=== PATIENT | female | born 1965 | race Caucasian/White ===

== ENCOUNTER 2022-01-09 09:06 | Emergency (ER) | payer BC ==
--- OUTSIDE RECORDS SUMMARY | 2022-01-09 09:08 | XMS REPORT | Continuity of Care Document ---
:1965 Author Organization [facility] t Address [address] [place] [address] Care Team Providers Name Role Phone Russell Attending Clinician Unavailable Problems This patient has no known problems. Allergies, Adverse Reactions, Alerts Allergy Allergy Status Severity Reaction(s) Onset Inactive Treating Comm ents Source Name Type Date Date Clinician NSAIDS Adverse Active throat[facility]facia [facility] Aspirin Adverse Active [facility] Medications Ordered Filled Start Stop Current Ordering Indication Dosage Frequency Signature Comments Components Source Medication Medication Date Date Medication? Clinician (SIG) Name Name Acyclovir Acyclovir Yes Polly [address] [facility] Pravastatin Pravastatin 0 Yes Polly [address] [facility] Sodium Sodium 8-06 [facility] Farxiga Farxiga 2019-0 2020- No [facility] Acyclovir Acyclovir Yes Polly [address] [facility] [address] [facility] Russell [facility]atio [facility] Mometasone Mometasone Yes Polly [address] [facility] [address] [facility] Furoate Furoate Russell applicatio Farheen kes [facility] Immunizations Ordered Filled Immunization Date Status Comments [facility] e Immunization Name Name Flucelvax - single Flucelvax - single 2020-05-[address] [facility] - dose syringe dose syringe 00:00:00 [facility] Flucelvax - single Flucelvax - single 2019-07-[address] [facility] - dose syringe dose syringe 00:00:00 [facility] Procedures This patient has no known procedures. Encounters Start End Encounter Admission Attending Care Care Encounter Source Date/Time Date/Time Type Type Clinicians Facility Department ID 2021-10-20 Outpatient [place] [facility] [id number] [facility] 15[facility]00 [facility] 2021-10-12 Outpatient [place] [facility] [id number] [facility] 08:38:01 [facility] 2021-10-04 Outpatient [place] [facility] [id number] [facility] 14:00:37 [facility] [id number] [facility] 2021-10-04 Outpatient [place] [facility] [id number] [facility] 12:45:46 [facility] [id number] [facility] 2021[facility]10-04 Outpatient [place] [facility] [id number] [facility] 12:14:09 [facility] [id number] [facility] 2021-10-04 Outpatient [place] [facility] [id number] [facility] 11:56:05 [facility] [id number] [facility] 2021-10-04 Outpatient [place] [facility] [id number] [facility] 11:24:32 [facility] [id number] [facility] 2021-10-04 Outpatient [place] [facility] [id number] [facility] 10:59:22 [facility] [id number] [facility] 2021-06-26 2021-06-26 Out[facility] [id number] [facility] 2021-04-18 2021-04-18 Out[facility] [id number] [facility] 2021-03-22 2021-03-22 Out[facility] [id number] [facility] 2021-03-20 2021-03-20 [facility] [id number] [facility] 2021-03-15 2021-03-15 Out[facility] [id number] [facility] 2020-12-05 2020-12-05 Out[facility] [id number] [facility] 2020-08-26 2020-08-26 Outpatient [facility] [id number] [facility] 2020-05-20 2020-05-20 [facility] [id number] [facility] 08:40:00 08:40:00 [facility] 2020-04-14 2020-04-14 [facility] [id number] [facility] 18[facility]28:00 18:28:00 [facility] 2020-02-22 2020-02-22 [facility] [id number] [facility] 11:00:00 11:00:00 [facility] Medicine [facility] Clin[facility] 2020-02-12 2020-02-12 [facility] [id number] [facility] 08:00:00 08:00:00 [facility] Medicine Out[facility] Clin[facility] 2019-11-18 2019-11-18 [facility] [id number] [facility] 17:40:00 17:40:00 [facility] Outpat[facility] Clinics 2019-11-13 2019-11-13 [facility] [id number] [facility] 09:20:00 09:20:00 [facility] Medicine Outpati [facility] Clinics 2019-09-18 2019-09-18 [facility] [id number] 09:00:00 09:00:00 [facility] Medicine Outpati ent Clinics 2019-07-10 2019-07-10 [facility] [id number] [facility] 08:40:00 08:40:00 [facility] Medicine Outpati ent Clinics 2019-03-27 2019-03-27 [facility] [id number] 08:40:00 08:40:00 [facility] Medicine Outpat[facility] Clinics 2018-11-13 2018-11-13 [facility] [id number] 14:30:00 14:30:00 [facility] Results This patient has no known results.
[2022-01-09] MEDS ORDERED: TETANUS & DIPHTHERIA TOX,ADULT 0.5 ML VIAL ONE (10:12)
[2022-01-09] MEDS ORDERED: LIDOCAINE 1% MPF 30 ML VIAL ONE (10:12)
--- NOTE | 2022-01-09 11:02 | ER ---
Nurse's Notes [facility] Name: Piedad Mello Age: 56 yrs Sex: Female : 1965 Arrival Date: 01/09/2022 Time: 09:08 Bed 10 Private MD: Diagnosis: Laceration without foreign body, right lower leg Presentation: 01/09 09:43 Chief complaint: Patient states: Metal edge of air filter cover fell and cut R leg just ll1 20 min ASW/ASUW [employer]ICAL [employer]ER. <5 cm laceration, bleeding has stopped . Coronavirus screen: Vaccine status: Patient reports receiving the 2nd dose of the covid vaccine. Client denies travel out of the [place] in the last 14 days. At this time, the client does not indicate any symptoms associated with coronavirus-19. Ebola Screen: Patient denies travel to an Ebola-affected area in the 21 days before illness onset. Complicating Factors: There are no complicating factors for this patient. Initial Sepsis Screen: Does the patient meet any 2 criteria? No. Patient's initial sepsis screen is negative. Does the patient have a suspected source of infection? Yes: Skin breakdown/wound. Risk Assessment: Do you want to hurt yourself or someone else? Patient reports no desire to harm self or others. Onset of symptoms was January 09, 2022. 09:43 Method Of Arrival: Ambulatory ll1 09:43 Acuity: MYRA 4 ll1 Triage Assessment: 09:46 General: Appears uncomfortable, Behavior is cooperative, appropriate for age. Pain: ll1 Complains of pain in right leg Quality of pain is described as aching. Derm: Reports <5 cm laceration RLE. Musculoskeletal: Circulation, motion, and sensation intact. Capillary refill < 3 seconds. Injury Description: Laceration. Historical: - Allergies: 09:45 Aspirin; ll1 09:45 NSAIDS; ll1 - PMHx: 09:45 Diabetes mellitus; ll1 - PSHx: 09:45 spine SX neck area.; ll1 - Immunization history:: Client reports receiving the 2nd dose of the Covid vaccine. - Social history:: Smoking status: Patient denies any tobacco usage or history of. Screenin:46 Abuse screen: Denies threats or abuse. Nutritional screening: No deficits noted. ll1 Tuberculosis screening: No symptoms or risk factors identified. Fall Risk Total Mena Fall Scale indicates No Risk (0-24 pts). Assessment: 10:10 Reassessment: No changes from previously documented assessment. Patient and/or family ll1 updated on plan of care and expected duration. Pain level reassessed. Patient is alert, oriented x 3, equal unlabored respirations, skin warm/dry/pink. 12:04 Injury Description: Laceration is clean. ll1 12:04 Musculoskeletal: Circulation, motion, and sensation intact. Capillary refill < 3 ll1 seconds. Vital Signs: 09:43 BP 157 / 86; Pulse 72; Resp 16; Temp 97.9; Pulse Ox 99% on R/A; Weight 53.07 kg; Height ll1 5 ft. 0 in. (152.40 cm); Pain 410; 09:43 Body Mass Index 22.85 (53.07 kg, 152.40 cm) ll1 ED Course: 09:08 Patient arrived in ED. ds1 09:45 Triage completed. ll1 09:48 Ramy Robledo NP is PHCP. pm1 09:48 Lam Stanford MD is Attending Physician. pm1 10:34 Layla Adams, LEANNE is Primary Nurse. ll1 11:17 Patient has correct armband on for positive identification. Bed in low position. Call ll1 light in reach. Cardiac monitoring not applicable on this patient. 11:17 No provider procedures requiring assistance completed. Patient did not have IV access ll1 during this emergency room visit. 12:03 Arm band placed on. ll1 Administered Medications: 10:10 Drug: Tetanus-Diphtheria Toxoid Adult 0.5 ml {Carrier Operator: [employer]. Exp: ll1 11/18/2023. Lot #: [id number]. } Route: IM; Site: right deltoid; 12:04 Follow up: Response: No adverse reaction ll1 10:36 Drug: Lidocaine (1 %) 5 ml {Note: Administered by YOMI Mccann.} Volume: 5 ml; Route: ss Infiltration; Outcome: 11:02 Discharge ordered by . pm1 11:17 Patient left the ED. 5 11:17 Discharged to home ambulatory. ll1 11:17 Condition: stable 11:17 Discharge instructions given to patient, Instructed on discharge instructions, follow up and referral plans. no driving heavy equipment, medication usage, Demonstrated understanding of instructions, follow-up care, medications, Prescriptions given X 2. Signatures: Krysta Pablo ds1 Veena Shea, LEANNE RN ss Ramy Robledo, DAIRY CONSULTANT DAIRY CONSULTANT pm1 Oksana Crane 5 Layla Adams RN RN ll1
--- NOTE | 2022-01-09 11:02 | EDPHYS ---
Physician Documentation [facility] Name: Piedad Mello Age: 56 yrs Sex: Female : 1965 Arrival Date: 01/09/2022 Time: 09:08 Bed 10 Private MD: ED Physician Lam Stanford HPI: 01/09 10:00 This 56 yrs old Female presents to ER via Ambulatory with complaints of Laceration To pm1 Leg. 10:00 The patient has a laceration occurred at home, and there are no complicating factors. pm1 The laceration(s) is(are) located on the right leg. Onset: The symptoms/episode began/occurred just prior to arrival. Associated signs and symptoms: The patient has no apparent associated signs or symptoms, Pertinent negatives: heavy bleeding, numbness distal to injury, suspected foreign body. The patient has not experienced similar symptoms in the past. The patient has not recently seen a physician. Patient was changing the air filter and the covering grate fell down and cut the patient's right leg. Historical: - Allergies: 09:45 Aspirin; ll1 09:45 NSAIDS; ll1 - PMHx: 09:45 Diabetes mellitus; ll1 - PSHx: 09:45 spine SX neck area.; ll1 - Immunization history:: Client reports receiving the 2nd dose of the Covid vaccine. - Social history:: Smoking status: Patient denies any tobacco usage or history of. ROS: 10:00 Constitutional: Negative for fever, chills, and weight loss, Cardiovascular: Negative pm1 for chest pain, palpitations, and edema, Respiratory: Negative for shortness of breath, cough, wheezing, and pleuritic chest pain, Abdomen/GI: Negative for abdominal pain, nausea, vomiting, diarrhea, and constipation. 10:00 MS/extremity: Positive for injury or acute deformity, laceration, of the right leg. 10:00 All other systems are negative. Exam: 10:00 Constitutional: This is a well developed, well nourished patient who is awake, alert, pm1 and in no acute distress. Head/Face: Normocephalic, atraumatic. 10:00 MS/ Extremity: Pulses equal, no cyanosis. Neurovascular intact. Full, normal range of motion. 10:00 Cardiovascular: Exam negative for acute changes, Rate: normal, Rhythm: regular, Pulses: no pulse deficits are appreciated. 10:00 Respiratory: Exam negative for acute changes, respiratory distress, shortness of breath. 10:00 Skin: Appearance: normal except for affected area, injury, laceration(s), the wound is approximately 6 cm(s), of the lateral aspect of right calf, that can be described as clean, no foreign body, linear. 10:00 Neuro: Exam negative for acute changes, Orientation: is normal, Mentation: is normal, Motor: is normal, moves all fours. Vital Signs: 09:43 BP 157 / 86; Pulse 72; Resp 16; Temp 97.9; Pulse Ox 99% on R/A; Weight 53.07 kg; Height ll1 5 ft. 0 in. (152.40 cm); Pain 4/10; 09:43 Body Mass Index 22.85 (53.07 kg, 152.40 cm) ll1 Laceration: 11:00 Wound Repair of 6cm ( 2.4in ) subcutaneous laceration to lateral aspect of right calf. pm1 Linear shaped.. Distal neuro/vascular/tendon intact. Anesthesia: Local anesthetic administered with 6 mls of 1% lidocaine. Wound prep: Extensive cleansing with betadine with hibiclenz by me, Wound irrigation with saline by me, Wound explored extensively, Copious irrigation. Skin closed with 12 4-0 Prolene using simple sutures and sterile technique. Dressed with Neosporin, 4x4's, non-adherent dressing. Patient tolerated well. MDM: 09:48 Patient medically screened. pm1 11:00 Data reviewed: vital signs. Data interpreted: Pulse oximetry: on room air is 99 %. pm1 Interpretation: normal. Counseling: I had a detailed discussion with the patient and/or guardian regarding: the historical points, exam findings, and any diagnostic results supporting the discharge/admit diagnosis, the need for outpatient follow up, to return to the emergency department if symptoms worsen or persist or if there are any questions or concerns that arise at home. 01/09 10:00 Order name: Dressing - Wound; Complete Time: 10:37 pm1 01/09 10:00 Order name: Gloves, Sterile; Complete Time: 10:37 pm1 01/09 10:00 Order name: Prolene, Sutures; Complete Time: 10:37 pm1 01/09 10:00 Order name: Setup Suture Tray; Complete Time: 10:37 pm1 Administered Medications: 10:10 Drug: Tetanus-Diphtheria Toxoid Adult 0.5 ml {Ell Teacher: [employer]. Exp: ll1 11/18/2023. Lot #: [id number]. } Route: IM; Site: right deltoid; 12:04 Follow up: Response: No adverse reaction [facility] 10:36 Drug: Lidocaine (1 %) 5 ml {Note: Administered by YOMI Mccann.} Volume: 5 ml; Route: ss Infiltration; Disposition: 12:23 Co-signature as Attending Physician, Lam Stanford MD. rn Disposition Summary: 01/09/22 11:02 Discharge Ordered Location: Home pm1 Problem: new pm1 Symptoms: have improved pm1 Condition: Stable pm1 Diagnosis - Laceration without foreign body, right lower leg pm1 Followup: pm1 - With: Emergency Department - When: As needed - Reason: Worsening of condition Followup: pm1 - With: Private Physician - When: 10 - 14 days - Reason: Recheck today's complaints, Continuance of care, Staple/Suture removal, Re-evaluation by your physician Discharge Instructions: - Discharge Summary Sheet pm1 - Laceration Care, Adult pm1 Forms: - Medication Reconciliation Form pm1 - Thank You Letter pm1 - Antibiotic Education pm1 - Prescription Opioid Use pm1 Prescriptions: - Cephalexin 500 mg Oral Capsule - take 1 capsule by ORAL route every 6 hours for 10 days; 40 capsule; Refills: 0, pm1 Product Selection Permitted - Tylenol-Codeine #3 300 mg-30 mg Oral - take 2 tablet by ORAL route every 6 hours As needed; 12 tablet; Refills: 0, pm1 Product Selection Permitted Signatures: Lam Stanford MD MD rn Smirch, Shelby, RN RN ss Marinas, Patrick, NP MARKETING DIRECTOR pm1 Layla Adams RN RN 1
[2022-01-09 11:22] VITALS: BP 157/86; TEMP 97.9; O2SAT 99
== END 2022-01-09 11:17 | disposition home or self-care (01) ==
LOC: ER 09:06
PROC: 0JQN0ZZ Repair Right Lower Leg Subcutaneous Tissue and Fascia, Open Approach (ICD-10-PCS; principal; 2022-01-09)
DX: S81.811A Laceration without foreign body, right lower leg, initial encounter (principal); W26.8XXA Contact with other sharp object(s), not elsewhere classified, initial encounter; Y92.009 Unspecified place in unspecified non-institutional (private) residence as the place of occurrence of the external cause; Z23 Encounter for immunization; Z88.6 Allergy status to analgesic agent; E11.9 Type 2 diabetes mellitus without complications
CPT/HCPCS: 90471; 90714; 99283

== ENCOUNTER 2022-11-25 09:05 | Emergency (ER) | payer BC ==
--- OUTSIDE RECORDS SUMMARY | 2022-11-25 09:08 | XMS REPORT | Continuity of Care Document ---
:1965 Author Organization [facility] t Address [address] [place] [address] Care Team Providers Name Role Phone Polly Triana Attending Clinician Unavailable Payers Payer Name Policy Type Policy Number Effective Date Expiration Date S ourmeredith [employer] 6 [id number] 2005 Common Spiri t Blue Shield of 00:00:00 - [facility] Problems Condition Condition Condition Status Onset Resolution Last Treating Co mments Source Name Details Category Date Date Treatment Clinician Date [id number] Type 2 Problem Common diabetes Spirit mellitus - [facility]I with [facility] long-term current use of insulin [id number] HSV Problem Common (herpes Spirit simplex - [facility] virus) [facility] [place] [id number] Pure Problem Common hyperchole Spirit sterolemia - [facility] Depression Depression Problem C ommon Spirit - [facility] Allergic Allergic Problem Commo n rhinitis rhinitis, Spiri t unspecifie - CHI d [facility] [id number] Eczema, Problem Common unspecifie Spirit d type - [facility] [id number] Breast Problem Common implant Spirit status - [facility] Allergies, Adverse Reactions, Alerts Allergy Allergy Status Severity Reaction(s) Onset Inactive Treating Comm ents Source Name Type Date Date Clinician Substanc Substanc Active elevated Comm on e with e with glucose Spirit 3-hydrox 3-hydrox - CHI y-3-meth y-3-meth ylglutar ylglutar [facility] yl-coenz yl-coenz Medica l yme A yme A Center reductas reductas e e inhibito inhibito r r mechanis mechanis m of m of action action (substan (substan ce) ce) 0 Drug Active throat/facia Comm on allergy l swelling Spiri [facility] aspirin aspirin Active throat/facia Co mmon l swelling [facility] Social History Social Habit Start Date Stop Date Quantity Comments Source History of Tobacco Use Co mmon [facility] Sex Assigned At Com mon [facility] Smoking Status Start Date Stop Date Source Never Smoker Common [facility] Medications Ordered Filled Start Stop Current Ordering Indication Dosage Frequency Signature Comments Components Source Medication Medication Date Date Medication? Clinician (SIG) Name Name Cephalexin Cephalexin 2021- No 1{capsu BID Cephalexin 500 MG 500 MG 06-04 le} 500 MG 00:00: 00:00 00 :00 Cephalexin Cephalexin 2021-2021- No 1{capsu BID Cephalexin 500 MG 500 MG 06-04 le} 500 MG 00:00: 00:00 00 :00 Gemfibrozil Gemfibrozil No BID Gemfibrozi 600 MG 600 MG 2-07 l 600 MG 00:00: 00 Ezetimibe Ezetimibe 2020- No 1{table QD Ezetimibe 10 MG 10 MG 0-18 t} 10 MG 00:00: 00 Pravastatin Pravastatin No 1{table QD Pravastati Sodium 20 Sodium 20 7-12 t} n Sodium MG MG 00:00: 20 MG 00 Acyclovir Acyclovir 2019-0 Yes Polly 1 tablet Common 9-11 [place] Spirit 00:00: - CHI 00 [facility] Pravastatin Pravastatin 0 Yes Polly 1 tablet Common Sodium Sodium 8-06 [place] Spirit 00:00: - CHI 00 [facility] Farxiga Farxiga 0 2020- No Polly 1 Commo n 6-01 16- [place] Spirit 00:00: 00:00 - CHI 00 :00 [facility] Acyclovir Acyclovir 2019-0 Yes Polly 1 Co mmon 7-19 [place] applicatio Spirit 00:00: n to - CHI 00 affected [facility] metFORMIN metFORMIN No 1{table QD metFORMIN HCl 500 MG HCl 500 MG t_with_ HCl 500 MG a_meal} Mometasone Mometasone No 1{appli QD Mometasone Furoate 0.1 Furoate 0.1 cation} Furoate % % 0.1 % Acyclovir Acyclovir No Acyclovir 400 MG 400 MG 400 MG Gemfibrozil Gemfibrozil No BID Gemfibrozi 600 MG 600 MG l 600 MG Cephalexin Cephalexin No 1{capsu QID Cephalexin 500 MG 500 MG le} 500 MG metFORMIN metFORMIN No metFORMIN HCl ER 750 HCl ER 750 HCl ER 750 MG MG MG metFORMIN metFORMIN No QD metFORMIN HCl ER 750 HCl ER 750 HCl ER 750 MG MG MG Mometasone Mometasone No 1{appli QD Mometasone Furoate 0.1 Furoate 0.1 cation} Furoate % % 0.1 % Gemfibrozil Gemfibrozil No BID Gemfibrozi 600 MG 600 MG l 600 MG metFORMIN metFORMIN No 1{table QD metFORMIN HCl 500 MG HCl 500 MG t_with_ HCl 500 MG a_meal} Acyclovir Acyclovir No TID Acyclovir 400 MG 400 MG 400 MG metFORMIN metFORMIN No QD metFORMIN HCl ER 750 HCl ER 750 HCl ER 750 MG MG MG Mometasone Mometasone No 1{appli QD Mometasone Furoate 0.1 Furoate 0.1 cation} Furoate % % 0.1 % metFORMIN metFORMIN No metFORMIN HCl 500 MG HCl 500 MG HCl 500 MG Acyclovir Acyclovir No TID Acyclovir 400 MG 400 MG 400 MG Gemfibrozil Gemfibrozil No BID Gemfibrozi 600 MG 600 MG l 600 MG metFORMIN metFORMIN No QD metFORMIN HCl ER 750 HCl ER 750 HCl ER 750 MG MG MG Mometasone Mometasone No 1{appli QD Mometasone Furoate 0.1 Furoate 0.1 cation} Furoate % % 0.1 % Gemfibrozil Gemfibrozil No BID Gemfibrozi 600 MG 600 MG l 600 MG metFORMIN metFORMIN No 1{table QD metFORMIN HCl 500 MG HCl 500 MG t_with_ HCl 500 MG a_meal} Acyclovir Acyclovir No TID Acyclovir 400 MG 400 MG 400 MG Farxiga Farxiga No QD Farxiga 10mg 10mg 10mg Mometasone Mometasone No 1{appli QD Mometasone Furoate 0.1 Furoate 0.1 cation} Furoate % % 0.1 % metFORMIN metFORMIN No 1{table QD metFORMIN HCl ER 750 HCl ER 750 t_with_ HCl ER 750 MG MG evening MG _meal} metFORMIN metFORMIN No metFORMIN HCl ER 750 HCl ER 750 HCl ER 750 MG MG MG Mometasone Mometasone No 1{appli QD Mometasone Furoate 0.1 Furoate 0.1 cation} Furoate % % 0.1 % metFORMIN metFORMIN No 1{table QD metFORMIN HCl 500 MG HCl 500 MG t_with_ HCl 500 MG a_meal} Acyclovir Acyclovir No Acyclovir 400 MG 400 MG 400 MG Mometasone Mometasone Yes Polly 1 Co mmon Furoate Furoate [place] applicatio Sp raghu [facility] metFORMIN metFORMIN No 1{table QD metFORMIN HCl 500 MG HCl 500 MG t_with_ HCl 500 MG a_meal} Mometasone Mometasone No 1{appli QD Mometasone Furoate 0.1 Furoate 0.1 cation} Furoate % % 0.1 % Acyclovir Acyclovir No Acyclovir 400 MG 400 MG 400 MG Gemfibrozil Gemfibrozil No BID Gemfibrozi 600 MG 600 MG l 600 MG Cephalexin Cephalexin No 1{capsu QID Cephalexin 500 MG 500 MG le} 500 MG metFORMIN metFORMIN No metFORMIN HCl ER 750 HCl ER 750 HCl ER 750 MG MG MG Immunizations Ordered Immunization Filled Immunization Date Status Commen ts Source Name Name Adacel (Tdap) Adacel (Tdap) 2022-01-09 Completed Common S pirit 08:26:00 [facility] Adacel (Tdap) Adacel (Tdap) 2022-01-09 Completed Common S pirit 08:26: [facility] Adacel (Tdap) Adacel (Tdap) 2022-01-09 Completed Common S pirit 08:26:00 - [facility] Adacel (Tdap) Adacel (Tdap) 2022-01-09 Completed Common S pirit 08:26:00 - [facility] Adacel (Tdap) Adacel (Tdap) 2022-01-09 Completed Common S pirit 08:26:00 - [facility] Flucelvax - single Flucelvax - single 2020-05-20 Completed Common Spirit dose syringe dose syringe 09:26:00 - [facility] Flucelvax - single Flucelvax - single 2020-05-20 Completed Common Spirit dose syringe dose syringe 09:26:00 - [facility] Flucelvax - single Flucelvax - single 2020-05-20 Completed Common Spirit dose syringe dose syringe 09:26:00 - [facility] Flucelvax - single Flucelvax - single 2020-05-20 Completed Common Spirit dose syringe dose syringe 09:26:00 - [facility] Flucelvax - single Flucelvax - single 2020-05-20 Completed Common Spirit dose syringe dose syringe 09:26:00 - [facility] Flucelvax - single Flucelvax - single 2020-05-20 Completed Common Spirit dose syringe dose syringe 09:26:00 - [facility] Flucelvax - single Flucelvax - single 2020-05-20 Completed Common Spirit dose syringe dose syringe 09:26:00 - [facility] Flucelvax - single Flucelvax - single 2020-05-20 Completed Common Spirit dose syringe dose syringe 00:00:00 - [facility] Flucelvax - single Flucelvax - single 2019-07-10 Completed Common Spirit dose syringe dose syringe 11:08:00 - [facility] Flucelvax - single Flucelvax - single 2019-07-10 Completed Common Spirit dose syringe dose syringe 11:08:00 - [facility] Flucelvax - single Flucelvax - single 2019-07-10 Completed Common Spirit dose syringe dose syringe 11:08:00 - [facility] Flucelvax - single Flucelvax - single 2019-07-10 Completed Common Spirit dose syringe dose syringe 11:08:00 - [facility] Flucelvax - single Flucelvax - single 2019-07-10 Completed Common Spirit dose syringe dose syringe 11:08:00 - [facility] Flucelvax - single Flucelvax - single 2019-07-10 Completed Common Spirit dose syringe dose syringe 11:08:00 - [facility] Flucelvax - single Flucelvax - single 2019-07-10 Completed Common Spirit dose syringe dose syringe 11:08:00 - [facility] Flucelvax - single Flucelvax - single 2019-07-10 Completed Common Spirit dose syringe dose syringe 00:00:00 - [facility] Vital Signs Vital Name Observation Time Observation Value Comments Source height 2022-06-04 11:00:00 60 [in_i] [facility] weight 2022-06-04 11:00:00 124.2 [lb_av] [facility] temperature 2022-06-04 11:00:00 97.8 [degF] [facility] bmi 2022-06-04 11:00:00 24.25 kg/m2 [facility] oximetry 2022-06-04 11:00:00 99 % [facility] respiratory rate 2022-06-04 11:00:00 16 /min Comm on [facility] blood pressure 2022-06-04 11:00:00 131 mm[Hg] Common [facility] - systolic [facility] blood pressure 2022-06-04 11:00:00 65 mm[Hg] Common [facility] - diastolic [facility] height 2022-01-15 08:00:00 60 [in_i] [facility] weight 2022-01-15 08:00:00 123.4 [lb_av] [facility] temperature 2022-01-15 08:00:00 97.3 [degF] [facility] bmi 2022-01-15 08:00:00 24.1 kg/m2 Common [facility] oximetry 2022-01-15 08:00:00 97 % Common [facility] respiratory rate 2022-01-15 08:00:00 16 /min Comm on [facility] blood pressure 2022-01-15 08:00:00 134 mm[Hg] Common [facility] - systolic [facility] blood pressure 2022-01-15 08:00:00 73 mm[Hg] Common [facility] - diastolic [facility] height 2021-10-16 09:00:00 60 [in_i] Common [facility] weight 2021-10-16 09:00:00 123 [lb_av] [facility] temperature 2021-10-16 09:00:00 97.7 [degF] [facility] bmi 2021-10-16 09:00:00 24.02 kg/m2 [facility] oximetry 2021-10-16 09:00:00 99 % Common [facility] respiratory rate 2021-10-16 09:00:00 16 /min Comm on [facility] blood pressure 2021-10-16 09:00:00 128 mm[Hg] Common [facility] - systolic [facility] blood pressure 2021-10-16 09:00:00 62 mm[Hg] Common [facility] - diastolic [facility] height 2021-06-26 08:00:00 60 [in_i] Common [facility] weight 2021-06-26 08:00:00 121.8 [lb_av] [facility] temperature 2021-06-26 08:00:00 97.0 [degF] [facility] bmi 2021-06-26 08:00:00 23.78 kg/m2 [facility] oximetry 2021-06-26 08:00:00 100 % Common [facility] respiratory rate 2021-06-26 08:00:00 16 /min Comm on [facility] blood pressure 2021-06-26 08:00:00 132 mm[Hg] Common [facility] - systolic [facility] blood pressure 2021-06-26 08:00:00 68 mm[Hg] Common [facility] - diastolic [facility] Procedures This patient has no known procedures. Encounters Start End Encounter Admission Attending Care Care Encounter Source Date/Time Date/Time Type Type Clinicians Facility Department ID 2022-06-01 Outpatient [place], STLMLC STLMLC [id number] Common 10:44:00 Polly [facility] 2022-05-03 Outpatient [place], STLMLC STLMLC [id number] Common 08:30:01 Polly [facility] 2022-01-11 Outpatient [place], STLMLC STLMLC [id number] Common 13:10:00 Polly [facility] 2021-10-20 Outpatient [place], STLMLC STLMLC [id number] Common 15:32:00 Polly [facility] 2021-10-12 Outpatient [place], STLMLC STLMLC [id number] Common 08:38:01 Polly [facility] 2021-10-04 Outpatient [place], STLMLC STLMLC [id number] Common 14:00:37 Polly [id number] [facility] 2021-10-04 Outpatient [place], STLMLC STLMLC [id number] Common 12:45:46 Polly 47352 [facility] 2021-10-04 Outpatient [place], STLMLC STLMLC [id number] Common 12:14:09 Polly 30148 [facility] 2021-10-04 Outpatient [place], STLMLC STLMLC [id number] Common 11:56:05 Polly 55503 [facility] 2021-10-04 Outpatient [place], STLMLC STLMLC [id number] Common 11:24:32 Polly 47476 [facility] 2021-10-04 Outpatient [place], STLMLC STLMLC [id number] Common 10:59:22 Polly [id number] [facility] 2022-10-01 2022-10-01 (TEL) STLMLC STLMLC [id number] Co mmon 00:00:00 00:00:00 [facility] 2022-06-04 2022-06-04 PREV VISIT STLMLC STLMLC [id number] Common 00:00:00 00:00:00 EST AGE [facility] 40-64 [facility] 2022-02-07 2022-02-07 (TEL) STLMLC STLMLC [id number] Co mmon 00:00:00 00:00:00 [facility] 2022-01-15 2022-01-15 OFFICE STLMLC STLMLC [id number] Co mmon 00:00:00 00:00:00 VISIT EST Spir it PT LEVEL 3 [facility] 2021-10-16 2021-10-16 OFFICE STLMLC STLMLC [id number] Co mmon 00:00:00 00:00:00 VISIT EST Spir it PT LEVEL 3 [facility] 2021-06-26 2021-06-26 OFFICE STLMLC STLMLC [id number] Co mmon 00:00:00 00:00:00 VISIT EST Spir it PT LEVEL 3 [facility] 2021-04-18 2021-04-18 Outpatient STLMLC STLMLC [id number] Common 00:00:00 00:00:00 [facility] 2021-03-22 2021-03-22 Outpatient STLMLC STLMLC [id number] Common 00:00:00 00:00:00 [facility] 2021-03-20 2021-03-20 Outpatient STLMLC STLMLC [id number] Common 00:00:00 00:00:00 [facility] 2021-03-15 2021-03-15 Outpatient STLMLC STLMLC [id number] Common 00:00:00 00:00:00 [facility] 2020-12-05 2020-12-05 Outpatient STLMLC STLMLC [id number] Common 00:00:00 00:00:00 [facility] 2020-08-26 2020-08-26 Outpatient STLMLC STLMLC [id number] Common 00:00:00 00:00:00 [facility] 2020-05-20 2020-05-20 [facility] [id number] Common 08:40:00 08:40:[address] [facility] 2020-04-14 2020-04-14 [facility] [id number] Common 18:28:00 18:28:[address] [facility] 2020-02-22 2020-02-22 [facility] [id number] Common 11:00:00 11:00:[address] [facility] 2020-02-12 2020-02-12 [facility] [id number] Common 08:00:00 08:00:[address] [facility] 2019-11-18 2019-11-18 [facility] [id number] Common 17:40:00 17:40:[address] [facility] 2019-11-13 2019-11-13 [facility] [id number] Common 09:20:00 09:20:[address] [facility] 2019-09-18 2019-09-18 [facility] [id number] Common 09:00:00 09:00:[address] [facility] 2019-07-10 2019-07-10 [facility] [id number] Common 08:40:00 08:40:[address] [facility] 2019-03-27 2019-03-27 [facility] [id number] Common 08:40:00 08:40:[address] [facility] 2018-11-13 2018-11-13 Outpatient Eric Meeks [id number] Common 14:30:00 14:30:00 [facility] Results Test Description Test Time Test Comments Results Result Comments Source HEMOGLOBIN A1C 2022-06-04 00:00:00 Test Item Value Reference Range Interpretation Comme nts A1C (test code = 4548-4) 6.5 HEMOGLOBIN [id number] 00:00:00 Test Item Value Reference Range Interpretation Comments A1C (test code = 4548-4) 6.5 HEMOGLOBIN A1c W/REFL TO GLYCOMARK(R)2022-01-05 00:00:00 Test Item Value Reference Range Interpretation Comments HEMOGLOBIN A1c (test 6.1 % of total See_Comment H [Aut omated message] code = 4549-2) Hgb The system [employer] generated this result transmit corry reference range : <5.7 % of total Hgb. The reference r cristian was not used to interpret this result as normal/abnormal . MICROALBUMIN, RANDOM URINE (W/CREATININE)2022-01-05 00:00:00 Test Item Value Reference Range Interpretation Comments CREATININE, 78 mg/dL See_Comment N [Automated mes tarsha] RANDOM URINE The system [employer] (test code = generated this result 2161-8) transmitted ref erence range: 20-275 m g/dL. The reference r cristian was not used to interpret this result as normal/abnor mal. ALBUMIN, URINE 0.5 mg/dL See Note: mg/dL N (test code = 25333-9) ALBUMIN/CREATININ 6 mcg/mg creat See_Comment N [Automa corry message] E RATIO, RANDOM The system w hich URINE (test code generated t his result = 9318-7) transmitted ref erence range: <30 mcg/ mg creat. The refe rence range was not u sed to interpret this result as normal/abnor mal. LIPID [id number] 00:00:00 Test Item Value Reference Range Interpretation Comments CHOLESTEROL, TOTAL 206 mg/dL See_Comment H [Automat ed (test code = 2093-3) message ] The system which generated this result transmitted reference range : <200 mg/dL. The reference range was not used to interpret this result as normal/abnormal . HDL CHOLESTEROL (test 95 mg/dL See_Comment N [Auto mated code = 2085-9) message] The system which generated this result transmitted reference range : > OR = 50 mg/dL. The reference range was not used to interpret this result as normal/abnormal . TRIGLYCERIDES (test 52 mg/dL See_Comment N [Automa corry code = 2571-8) message] The system which generated this result transmitted reference range : <150 mg/dL. The reference range was not used to interpret this result as normal/abnormal . LDL-CHOLESTEROL (test 98 mg/dL N code = 66101-7) (calc) CHOL/HDLC RATIO (test 2.2 (calc) See_Comment N [Auto mated code = 9830-1) message] The system which generated this result transmitted reference range : <5.0 (calc). Th e reference range was not used to interpret this result as normal/abnormal . NON HDL CHOLESTEROL 111 mg/dL See_Comment N [Automa corry (test code = 47425-4) (calc) messag e] The system which generated this result transmitted reference range : <130 mg/dL (mehran c). The reference r cristian was not used to interpret this result as normal/abnormal . [id number] 00:00:00 Test Item Value Reference Range Interpretation Comments TSH (test code = 1.09 mIU/L See_Comment N [Automated message] The 3016-3) system which ge nerated this result tra nsmitted reference range : 0.40-4.50 mIU/L . The reference range was not used to interpr et this result as normal/abnormal . COMPREHENSIVE METABOLIC PANEL(CMP)2022-01-05 00:00:00 Test Item Value Reference Range Interpretation Comments GLUCOSE (test code 111 mg/dL See_Comment H [Automat ed = 1095-7) message] The system which generated this result transmit corry reference range : 65-99 mg/dL. Th e reference range was not used to interpret this result as normal/abnormal . UREA NITROGEN (BUN) 10 mg/dL See_Comment N [Automa corry (test code = message] The 3094-0) system which generated this result transmit corry reference range : 7-25 mg/dL. The reference range was not used to interpret this result as normal/abnormal . CREATININE (test 0.62 mg/dL See_Comment N [Automated code = 2160-0) message] The system which generated this result transmit corry reference range : 0.50-1.05 mg/dL . The reference range was not u sed to interpret th is result as normal/abnormal . eGFR NON-AFR. 99 mL/min/1.73m2 See_Comment N [[employer] [place] (test code message] The = 01695-8) system which generated this result transmit corry reference range : > OR = 60 mL/min/1.73m2. The reference range was not used to interpret this result as normal/abnormal . eGFR 115 mL/min/1.73m2 See_Comment N [Automate d [employer] [place] (test code message] The = 08249-7) system which generated this result transmit corry reference range : > OR = 60 mL/min/1.73m2. The reference range was not used to interpret this result as normal/abnormal . BUN/CREATININE NOT APPLICABLE See_Comment [Automated RATIO (test code = (calc) message] The 3093) system which generated this result transmit corry reference range : 6-22 (calc). Th e reference range was not used to interpret this result as normal/abnormal . SODIUM (test code = 141 mmol/L See_Comment N [Automa corry 2951-2) message] The system which generated this result transmit corry reference range : 135-146 mmol/L. The reference range was not u sed to interpret th is result as normal/abnormal . POTASSIUM (test 5.1 mmol/L See_Comment N [Automated code = 2823-3) message] The system which generated this result transmit corry reference range : 3.5-5.3 mmol/L. The reference range was not u sed to interpret th is result as normal/abnormal . CHLORIDE (test code 102 mmol/L See_Comment N [Automa corry = 5-0) message] The system which generated this result transmit corry reference range : 98-110 mmol/L. The reference range was not used to interpret this result as normal/abnormal . CARBON DIOXIDE 30 mmol/L See_Comment N [Automated (test code = message] The 2028-05) system which generated this result transmit corry reference range : 20-32 mmol/L. T he reference range was not used to interpret this result as normal/abnormal . CALCIUM (test code 9.5 mg/dL See_Comment N [Automat ed = 36258-3) message] The system which generated this result transmit corry reference range : 8.6-10.4 mg/dL. The reference range was not u sed to interpret th is result as normal/abnormal . PROTEIN, TOTAL 6.4 g/dL See_Comment N [Automated (test code = message] The 2884-10) system which generated this result transmit corry reference range : 6.1-8.1 g/dL. T he reference range was not used to interpret this result as normal/abnormal . ALBUMIN (test code 4.6 g/dL See_Comment N [Automat ed = 1751-7) message] The system which generated this result transmit corry reference range : 3.6-5.1 g/dL. T he reference range was not used to interpret this result as normal/abnormal . GLOBULIN (test code 1.8 g/dL (calc) See_Comment L [Aut omated = 18516-7) message] The system which generated this result transmit corry reference range : 1.9-3.7 g/dL (calc). The reference range was not used to interpret this result as normal/abnormal . ALBUMIN/GLOBULIN 2.6 (calc) See_Comment H [Automated RATIO (test code = message] The ) system which generated this result transmit corry reference range : 1.0-2.5 (calc). The reference range was not u sed to interpret th is result as normal/abnormal . BILIRUBIN, TOTAL 0.6 mg/dL See_Comment N [Automated (test code = message] The 1974-10) system which generated this result transmit corry reference range : 0.2-1.2 mg/dL. The reference range was not used to interpret this result as normal/abnormal . ALKALINE 61 U/L See_Comment N [Automated PHOSPHATASE (test message] T he code = 6768-6) system which generated this result transmit corry reference range : 37-153 U/L. The reference range was not used to interpret this result as normal/abnormal . AST (test code = 21 U/L See_Comment N [Automated 1919-8) message] The system which generated this result transmit corry reference range : 10-35 U/L. The reference range was not used to interpret this result as normal/abnormal . ALT (test code = 11 U/L See_Comment N [Automated 2422-6) message] The system which generated this result transmit corry reference range : 6-29 U/L. The reference range was not used to interpret this result as normal/abnormal . HEMOGLOBIN [id number] 00:00:00 Test Item Value Reference Range Interpretation Comments A1C (test code = 4548-4) 6.5 HEMOGLOBIN A1C Test Item Value Reference Range Interpretation Comments A1C (test code = 4548-4) 7.0
[2022-11-25 09:43] LABS: Absolute Lymphocytes (CBC) 1.3 K/uL (0.7-4.9); Lymphocytes % 29.6 % (15.3-44.8); MPV 6.8 fL (7.6-11.3); RBC Red Blood Cell Count 4.89 M/uL (3.86-4.86)
[2022-11-25 10:07] LABS: Magnesium 2.2 mg/dL (1.6-2.4); Potassium 4.1 mEq/L (3.5-5.1); Thyroid Stimulating Hormone 0.942 uIU/mL (0.358-3.740); Troponin High Sensitivity 3.2 pg/mL (<58.9)
--- NOTE | 2022-11-25 10:11 | RAD REPORT ---
EXAM DESCRIPTION: [facility] Single View11/25/2022 10:01 am CLINICAL HISTORY: PALPITATIONS COMPARISON: Chest Single View dated 12/23/2015 TECHNIQUE: Portable AP view of the chest. FINDINGS: The lungs are clear. No pneumothorax or effusion. The cardiomediastinal contours are unrem arkable. IMPRESSION: No acute cardiopulmonary process.
--- NOTE | 2022-11-25 10:42 | ER ---
Nurse's Notes [facility] Name: Piedad Mello Age: 57 yrs Sex: Female : 1965 Arrival Date: 11/25/2022 Time: 09:06 Bed 16 Private MD: Polly Triana Diagnosis: Palpitations Presentation: 11/25 09:23 Chief complaint: Patient states: Intermittent palpitations x 1 week, [employer] has been jl7 saying A.fib. Coronavirus screen: At this time, the client does not indicate any symptoms associated with coronavirus-19. Ebola Screen: No symptoms or risks identified at this time. Initial Sepsis Screen: Does the patient meet any 2 criteria? No. Patient's initial sepsis screen is negative. Does the patient have a suspected source of infection? No. Patient's initial sepsis screen is negative. Risk Assessment: Do you want to hurt yourself or someone else? Patient reports no desire to harm self or others. Onset of symptoms was November 18, 2022. 09:23 Method Of Arrival: Ambulatory [facility] 09:23 Acuity: MYRA 3 jl7 Triage Assessment: 09:25 General: Appears in no apparent distress. uncomfortable, Behavior is calm, cooperative, jl7 appropriate for age. Pain: Denies pain. Cardiovascular: Reports palpitations. Historical: - Allergies: 09:25 Aspirin; jl7 09:25 NSAIDS; jl7 - Home Meds: 09:25 Farxiga oral [Active]; Metformin Oral [Active]; jl7 - PMHx: 09:25 diabetes mellitus; jl7 - PSHx: 09:25 spine SX neck area.; jl7 - Immunization history:: Client reports receiving the 2nd dose of the Covid vaccine. - Social history:: Smoking status: Patient denies any tobacco usage or history of. Screenin:35 [facility] ED Fall Risk Assessment (Adult) History of falling in the last 3 months, kc6 including since admission No falls in past 3 months (0 pts) Confusion or Disorientation No (0 pts) Intoxicated or Sedated No (0 pts) Impaired Gait No (0 pts) Mobility Assist Device Used No (0 pt) Altered Elimination No (0 pt) Score/Fall Risk Level 0 - 2 = Low Risk Oriented to surroundings, Maintained a safe environment, Educated pt \T\ family on fall prevention, incl call for assistance when getting out of bed, Assessed \T\ reinforced patient's understanding of fall precautions, Hourly rounding (assess needs \T\ fall precautionary measures) done. Abuse screen: Denies threats or abuse. Denies injuries from another. Nutritional screening: No deficits noted. Tuberculosis screening: No symptoms or risk factors identified. Assessment: 09:35 General: Appears in no apparent distress. comfortable, Behavior is calm, cooperative, kc6 appropriate for age. Pain: Denies pain. Neuro: Level of Consciousness is awake, alert, obeys commands, Oriented to person, place, time, situation, Appropriate for age. Cardiovascular: Reports palpitations, Heart tones S1 S2 present Capillary refill < 3 seconds Rhythm is sinus rhythm. Respiratory: Airway is patent Trachea midline Respiratory effort is even, unlabored, Respiratory pattern is regular, symmetrical. GI: No signs and/or symptoms were reported involving the gastrointestinal system. : No signs and/or symptoms were reported regarding the genitourinary system. EENT: No signs and/or symptoms were reported regarding the EENT system. Derm: No signs and/or symptoms reported regarding the dermatologic system. Skin is intact, Skin is pink, warm \T\ dry. Musculoskeletal: No signs and/or symptoms reported regarding the musculoskeletal system. Circulation, motion, and sensation intact. Capillary refill < 3 seconds, Range of motion: intact in all extremities. 10:27 Reassessment: Patient appears in no apparent distress at this time. No changes from kc6 previously documented assessment. Patient and/or family updated on plan of care and expected duration. Pain level reassessed. Patient is alert, oriented x 3, equal unlabored respirations, skin warm/dry/pink. Vital Signs: 09:23 BP 138 / 82; Pulse 74; Resp 17; Temp 97.9; Pulse Ox 100% on R/A; Weight 53.98 kg; jl7 Height 5 ft. 0 in. ; Pain 0/10; 10:27 BP 142 / 77; Pulse 66; Resp 19 S; Pulse Ox 99% on R/A; kc6 09:23 Body Mass Index 23.24 (53.98 kg, 152.4 cm) jl7 09:23 Pain Scale: Adult [facility] ED Course: 09:06 Patient arrived in ED. am2 09:06 Polly Triana FNP-C is Private Physician. am2 09:10 Arm band placed on right wrist. Patient placed in an exam room, on a stretcher, on jl7 ekg monitor, on pulse oximetry. EKG completed in triage. Results shown to MD. 09:11 Rhianna Woods [facility]-C [facility]. kb 09:11 Oliver Quinteros MD is Attending Physician. kb 09:18 Kathie Mayo, RN is Primary Nurse. kc6 09:25 Triage completed. jl7 09:35 Inserted saline lock: 20 gauge in left antecubital area, using aseptic technique. Blood kc6 collected. 09:36 Patient has correct armband on for positive identification. Placed in gown. Bed in low kc6 position. Call light in reach. Side rails up X 1. 10:02 XRAY Chest (1 view) In Process Unspecified. EDMS Administered Medications: No medications were administered Outcome: 10:42 Discharge ordered by . kb Signatures: Dispatcher [employer] EDMS Rhianna Woods FNP-C FNP-Ckb Leal, Jahala, RN RN jl7 [place] Garzonanda am2 Kathie Mayo, RN RN kc6
--- NOTE | 2022-11-25 10:42 | EDPHYS ---
Physician Documentation [facility] Name: Piedad Mello Age: 57 yrs Sex: Female : 1965 Arrival Date: 11/25/2022 Time: 09:06 Bed 16 Private MD: Polly Triana ED Physician Oliver Quinteros Historical: - Allergies: 11/25 09:25 Aspirin; jl7 09:25 NSAIDS; jl7 - Home Meds: 09:25 Farxiga oral [Active]; Metformin Oral [Active]; jl7 - PMHx: 09:25 diabetes mellitus; jl7 - PSHx: 09:25 spine SX neck area.; jl7 - Immunization history:: Client reports receiving the 2nd dose of the Covid vaccine. - Social history:: Smoking status: Patient denies any tobacco usage or history of. Exam: 09:16 ECG was reviewed by the Attending Physician. kb Vital Signs: 09:23 BP 138 / 82; Pulse 74; Resp 17; Temp 97.9; Pulse Ox 100% on R/A; Weight 53.98 kg; jl7 Height 5 ft. 0 in. ; Pain 0/10; 10:27 BP 142 / 77; Pulse 66; Resp 19 S; Pulse Ox 99% on R/A; kc6 09:23 Body Mass Index 23.24 (53.98 kg, 152.4 cm) jl7 09:23 Pain Scale: Adult jl7 MDM: 09:11 Patient medically screened. kb 11/25 09:15 Order name: EKG; Complete Time: 09:16 kb 11/25 09:15 Order name: Cardiac monitoring; Complete Time: 09:23 kb 11/25 09:15 Order name: EKG - Nurse/Tech; Complete Time: 09:23 kb 11/25 09:15 Order name: O2 Per Protocol; Complete Time: 09:23 kb 11/25 09:15 Order name: O2 Sat Monitoring; Complete Time: 09:23 kb 11/25 09:15 Order name: IV Saline Lock; Complete Time: 09:35 kb 11/25 09:15 Order name: Labs collected and sent; Complete Time: 09:35 kb 11/25 09:15 Order name: CBC with Diff; Complete Time: 09:47 kb 11/25 09:15 Order name: Basic Metabolic Panel; Complete Time: 10:15 kb 11/25 09:15 Order name: D-Dimer; Complete Time: 10:15 kb 11/25 09:15 Order name: Magnesium; Complete Time: 10:15 kb 11/25 09:15 Order name: Troponin HS; Complete Time: 10:15 kb 11/25 09:15 Order name: TSH; Complete Time: 10:15 kb 11/25 09:15 Order name: XRAY Chest (1 view); Complete Time: 10:15 kb EC:16 Rate is 76 beats/min. Rhythm is regular. QRS [place] is Normal. MA interval is normal at kb 134 msec. QRS interval is normal at 92 msec. QT interval is normal at 441 msec. Administered Medications: No medications were administered Disposition Summary: 11/25/22 10:42 Discharge Ordered Location: Home kb Condition: Stable kb Diagnosis - Palpitations kb Followup: kb - With: Emergency Department - When: As needed - Reason: Worsening of condition Followup: kb - With: Private Physician - When: 2 - 3 days - Reason: Recheck today's complaints, Continuance of care, Re-evaluation by your physician Discharge Instructions: - Discharge Summary Sheet kb - Palpitations, [id number] kb Forms: - Medication Reconciliation Form kb - Thank You Letter kb - Antibiotic Education kb - Prescription Opioid Use kb Signatures: Dispatcher [employer] Rhianna Duarte FNP-C FNP-Gurwinder Coffman, RN RN jl7
[2022-11-25 11:49] VITALS: TEMP 97.9
[2022-11-25 11:51] VITALS: BP 142/77; O2SAT 99
--- NOTE | 2022-11-26 17:37 | EKG ---
Test Date: 2022-11-25 Test Time: 09:13:21 Pugger Helper: MATHEW MEASUREMENT RESULTS: Intervals: Rate: 76 NM: 134 QRSD: 92 QT: 392 QTc: 441 [place]: P: 81 NM: 134 QRS: 66 T: 63 INTERPRETIVE STATEMENTS: Normal sinus rhythm Nonspecific ST and T wave abnormality Abnormal ECG Compared to ECG 12/23/2015 15:34:25 ST (T wave) deviation now present Electronically Signed On 11-26-22 17:35:31 CDT by Psaha Aguirre
== END 2022-11-25 10:53 | disposition home or self-care (01) ==
LOC: ER 09:05
DX: R00.2 Palpitations (principal); E11.9 Type 2 diabetes mellitus without complications; Z88.8 Allergy status to other drugs, medicaments and biological substances
CPT/HCPCS: 36415; 71045; 80048; 83735; 84443; 84484; 85025; 85379; 93005; 99284

== ENCOUNTER 2024-12-12 22:42 | Observation (INO) | payer BC, OTHER ==
--- OUTSIDE RECORDS SUMMARY | 2024-12-12 22:46 | XMS REPORT | Continuity of Care Document ---
Author Name Unknown Address [address] [facility]. [address] [place] [address] [facility] Address [address] [facility] [address] [place] [address] Care Team Providers Care Greens Keeper Name Role Phone Kamilah Polly Attending Clinician Unavailable [email or web address]_E Attending Clinician Unavaila ble [email or web address]_McIntire_E Admitting Clinician Unavaila ble Payers Payer Name Policy Type Policy Number Effective Date Expirati on Date Source Blue Cross Blue [facility] 6 [id number] 2005 00:00:00 [facility] BS [facility] (PPO) [id number] 2005 00:00:00 Problems Condition Name Condition Details Condition Category Status Onset Date Resolution Date Last Treatment Date Treating Clinician Comments Source Vitamin D deficiency Vitamin D Deficiency Problem Active 2023-09 00:00: 00 [facility] Anxiety disorder Anxiety Disorder Problem Active 2023-09 00:00: 00 [facility] Depressive disorder Depressive Disorder Problem Active 2023-09 00:00: 00 [facility] Insomnia Insomnia Problem Active 2023-09 00:00: 00 [facility] Menopausal syndrome Menopausal Syndrome Problem Active 2023-09 00:00: 00 [facility] Atrophic vaginitis Atrophic Vaginitis Problem Active 2023-09 00:00: 00 [facility] Joint pain Joint Pain Problem Active 2023-09 00:00: 00 [facility] Fatigue Fatigue Problem Active 2023-09 00:00: 00 [facility] Diabetes mellitus Diabetes Mellitus Problem Active 2022-09 00:00: 00 [facility] Abnormal heart beat Abnormal Heart Beat Problem Active 2022-09 00:00: 00 [facility] Atrial fibrillati on A-fib Problem [facility] [id number] Type 2 diabetes mellitus with hyperglyce dee, without long-term current use of insulin Problem [facility] [id number] HSV (herpes simplex virus) anogenital infection Problem [facility] [id number] Pure hyperchole sterolemia Problem [facility] Depression Depression Problem [facility] Allergic rhinitis Allergic rhinitis, unspecifie d Problem [facility] [id number] Eczema, unspecifie d type Problem [facility] [id number] Breast implant status Problem [facility] Allergies, Adverse Reactions, Alerts Allergy Name Allergy Type Status Severity Reaction(s) Onset Date Inactive Date Treating Clinician Comments Source Aspirin Allergy to substanc e Active [facility] NSAIDS (NON-ESTUARDO ROIDAL ANTI-INF LAMMATOR Y DRUG) Allergy to substanc e Active [facility] Substanc e with 3-hydrox y-3-meth ylglutar yl-coenz yme A reductas e inhibito r mechanis m of action (substan ce) Substanc e with 3-hydrox y-3-meth ylglutar yl-coenz yme A reductas e inhibito r mechanis m of action (substan ce) Active elevated glucose [facility] 0 Drug allergy Active throat/facia l swelling [facility] aspirin aspirin Active throat/facia l swelling [facility] Social History Social Habit Start Date Stop Date Quantity Comments Source History of Tobacco Use [facility] Sex Assigned At [facility] Smoking Status Start Date Stop Date Source Never Smoker [facility] Medications Ordered Medication Name Filled Medication Name Start Date Stop Date Current Medication? Ordering Clinician Indication Dosage Frequency Signature (SIG) Comments Components Source COAST - testosteron e 25mg pellet1 COAST - testosteron e 25mg pellet1 3 14:25: 46 No COAST - testostero ne 25mg pellet1 [facility] testosteron e 100 mg implant pelletTake 1 pellet by implantatio n route. testosteron e 100 mg implant pelletTake 1 pellet by implantatio n route. 3 14:24: 59 No 1pellet (s) testostero ne 100 mg implant pelletTake 1 pellet by implantati on route. [facility] estradiol 10 mg implant pelletTake 1 pellet by implantatio n route. estradiol 10 mg implant pelletTake 1 pellet by implantatio n route. 11-10 14:24: 00 No 1pellet (s) estradiol 10 mg implant pelletTake 1 pellet by implantati on route. [facility] testosteron e 87.5 mg implant pellet Take 1 pellet by implantatio n route. testosteron e 87.5 mg implant pellet Take 1 pellet by implantatio n route. 2023-09 16:13: 48 No 1pellet (s) testostero ne 87.5 mg implant pellet Take 1 pellet by implantati on route. [facility] metFORMIN HCl ER 750 MG metFORMIN HCl ER 750 MG 8 00:00: 00 No 1{table t_with_ evening _meal} QD metFORMIN HCl ER 750 MG Rybelsus 14 MG Rybelsus 14 MG 2022-09 00:00: 00 No QD Rybelsus 14 MG metFORMIN HCl 500 MG metFORMIN HCl 500 MG No 1{table t_with_ a_meal} QD metFORMIN HCl 500 MG Mometasone Furoate 0.1 % Mometasone Furoate 0.1 % No 1{appli cation} QD Mometasone Furoate 0.1 % Acyclovir 400 MG Acyclovir 400 MG No TID Acyclovir 400 MG Rosuvastati n Calcium 5 MG Rosuvastati n Calcium 5 MG No 1{table t} QD Rosuvastat in Calcium 5 MG Azithromyci n 250 MG Azithromyci n 250 MG No Azithromyc in 250 MG Fish Oil 1000 MG Fish Oil 1000 MG No 1{capsu le} QD Fish Oil 1000 MG Fish Oil Fish Oil No Fish Oil [facility] metformin 500 mg tablet TAKE 1 TABLET BY MOUTH EVERY DAY metformin 500 mg tablet TAKE 1 TABLET BY MOUTH EVERY DAY No metformin 500 mg tablet TAKE 1 TABLET BY MOUTH EVERY DAY [facility] metformin ER 750 mg tablet,exte nded release 24 hr TAKE 1 TABLET BY MOUTH DAILY WITH THE EVENING MEAL metformin ER 750 mg tablet,exte nded release 24 hr TAKE 1 TABLET BY MOUTH DAILY WITH THE EVENING MEAL No metformin ER 750 mg tablet,ext ended release 24 hr TAKE 1 TABLET BY MOUTH DAILY WITH THE EVENING MEAL [facility] rosuvastati n 5 mg tablet TAKE 1 TABLET BY MOUTH DAILY rosuvastati n 5 mg tablet TAKE 1 TABLET BY MOUTH DAILY No rosuvastat in 5 mg tablet TAKE 1 TABLET BY MOUTH DAILY [facility] valacyclovi r 500 mg tablet TAKE 1 TABLET BY MOUTH TWICE DAILY PRN valacyclovi r 500 mg tablet TAKE 1 TABLET BY MOUTH TWICE DAILY PRN No valacyclov ir 500 mg tablet TAKE 1 TABLET BY MOUTH TWICE DAILY PRN [facility] COAST - testosteron e 37.5mg pellet testosteron e 37.5mg pellet 1 pellet COAST - testosteron e 37.5mg pellet testosteron e 37.5mg pellet 1 pellet No COAST - testostero ne 37.5mg pellet testostero ne 37.5mg pellet 1 pellet [facility] progesteron e micronized 200 mg capsule Take 1 capsule every day by oral route at bedtime for 90 days. progesteron e micronized 200 mg capsule Take 1 capsule every day by oral route at bedtime for 90 days. No 1capsul e(s) Q1D progestero ne micronized 200 mg capsule Take 1 capsule every day by oral route at bedtime for 90 days. [facility] COAST - testosteron e 25mg pellet testosteron e 25mg pellet 1 COAST - testosteron e 25mg pellet testosteron e 25mg pellet 1 No COAST - testostero ne 25mg pellet testostero ne 25mg pellet 1 [facility] Immunizations Ordered Immunization Name Filled Immunization Name Date Status Comments Source Adacel (Tdap) Adacel (Tdap) 2022-01-09 08:26:00 Completed [facility] Adacel (Tdap) Adacel (Tdap) 2022-01-09 08:26:00 Completed [facility] Adacel (Tdap) Adacel (Tdap) 2022-01-09 08:26:00 Completed [facility] Adacel (Tdap) Adacel (Tdap) 2022-01-09 08:26:00 Completed [facility] Flucelvax - single dose syringe Flucelvax - single dose syringe 2020-05-20 09:26:00 Completed [facility] Flucelvax - single dose syringe Flucelvax - single dose syringe 2020-05-20 09:26:00 Completed [facility] Flucelvax - single dose syringe Flucelvax - single dose syringe 2020-05-20 09:26:00 Completed [facility] Flucelvax - single dose syringe Flucelvax - single dose syringe 2020-05-20 09:26:00 Completed [facility] Flucelvax - single dose syringe Flucelvax - single dose syringe 2020-05-20 00:00:00 Completed [facility] Flucelvax - single dose syringe Flucelvax - single dose syringe 2019-07-10 11:08:00 Completed [facility] Flucelvax - single dose syringe Flucelvax - single dose syringe 2019-07-10 11:08:00 Completed [facility] Flucelvax - single dose syringe Flucelvax - single dose syringe 2019-07-10 11:08:00 Completed [facility] Flucelvax - single dose syringe Flucelvax - single dose syringe 2019-07-10 11:08:00 Completed [facility] Flucelvax (ccIIV4) - SDS - 0.5mL Flucelvax (ccIIV4) - SDS - 0.5mL 2019-07-10 00:00:00 Completed [facility] Flucelvax - single dose syringe Flucelvax - single dose syringe Unknown Completed [facility] Adacel (Tdap) Adacel (Tdap) Unknown Completed [facility] Flucelvax - single dose syringe Flucelvax - single dose syringe Unknown Completed [facility] Adacel (Tdap) Adacel (Tdap) Unknown Completed [facility] Flucelvax (ccIIV4) - SDS - 0.5mL Flucelvax (ccIIV4) - SDS - 0.5mL Unknown Completed [facility] Adacel (Tdap) Adacel (Tdap) Unknown Completed [facility] Flucelvax (ccIIV4) - SDS - 0.5mL Flucelvax (ccIIV4) - SDS - 0.5mL Unknown Completed [facility] Adacel (Tdap) Adacel (Tdap) Unknown Completed [facility] Flucelvax (ccIIV4) - SDS - 0.5mL Flucelvax (ccIIV4) - SDS - 0.5mL Unknown Completed [facility] Adacel (Tdap) Adacel (Tdap) Unknown Completed [facility] Flucelvax (ccIIV4) - SDS - 0.5mL Flucelvax (ccIIV4) - SDS - 0.5mL Unknown Completed [facility] Adacel (Tdap) Adacel (Tdap) Unknown Completed [facility] Flucelvax (ccIIV4) - SDS - 0.5mL Flucelvax (ccIIV4) - SDS - 0.5mL Unknown Completed [facility] Adacel (Tdap) Adacel (Tdap) Unknown Completed [facility] Flucelvax (ccIIV4) - SDS - 0.5mL Flucelvax (ccIIV4) - SDS - 0.5mL Unknown Completed [facility] Adacel (Tdap) Adacel (Tdap) Unknown Completed [facility] Flucelvax (ccIIV4) - SDS - 0.5mL Flucelvax (ccIIV4) - SDS - 0.5mL Unknown Completed [facility] Adacel (Tdap) Adacel (Tdap) Unknown Completed [facility] Vital Signs Vital Name Observation Time Observation Value Comments S ource height 2024-07-27 09:00:00 59.50 [in_i] Com [facility] weight 2024-07-27 09:00:00 119.4 [lb_av] Co [facility] temperature 2024-07-27 09:00:00 97.4 [degF] Com [facility] bmi 2024-07-27 09:00:00 23.71 kg/m2 [facility] oximetry 2024-07-27 09:00:00 98 % [facility] respiratory rate 2024-07-27 09:00:00 16 /min [facility] blood pressure systolic 2024-07-27 09:00:00 126 mm[Hg] [facility] blood pressure diastolic 2024-07-27 09:00:00 82 mm[Hg] [facility] Height 2024-07-20 00:00:00 60 [in_i] [facility] Diastolic 2024-07-20 00:00:00 88 mm[Hg] [facility] BMI (Body Mass Index) 2024-07-20 00:00:00 23 [facility]2 [facility] 2024-07-20 00:00:00 118 [lb_av] [facility] BP Systolic 2024-07-20 00:00:00 130 mm[Hg] [facility] height 2023-12-27 10:40:00 59.50 [in_i] Com [facility] weight 2023-12-27 10:40:00 113.0 [lb_av] Co [facility] temperature 2023-12-27 10:40:00 97.3 [degF] Com [facility] bmi 2023-12-27 10:40:00 22.44 kg/m2 [facility] oximetry 2023-12-27 10:40:00 99 % [facility] respiratory rate 2023-12-27 10:40:00 16 /min [facility] blood pressure systolic 2023-12-27 10:40:00 130 mm[Hg] [facility] blood pressure diastolic 2023-12-27 10:40:00 82 mm[Hg] [facility] height 2023-07-22 08:00:00 60 [in_i] [facility] weight 2023-07-22 08:00:00 127.8 [lb_av] Co [facility] temperature 2023-07-22 08:00:00 97.5 [degF] Com [facility] bmi 2023-07-22 08:00:00 24.96 kg/m2 [facility] oximetry 2023-07-22 08:00:00 100 % [facility] respiratory rate 2023-07-22 08:00:00 16 /min [facility] blood pressure systolic 2023-07-22 08:00:00 139 mm[Hg] [facility] blood pressure diastolic 2023-07-22 08:00:00 70 mm[Hg] [facility] height 2023-05-31 08:00:00 60 [in_i] [facility] weight 2023-05-31 08:00:00 125.8 [lb_av] Co [facility] temperature 2023-05-31 08:00:00 97.3 [degF] Com [facility] bmi 2023-05-31 08:00:00 24.57 kg/m2 [facility] oximetry 2023-05-31 08:00:00 98 % [facility] respiratory rate 2023-05-31 08:00:00 16 /min [facility] blood pressure systolic 2023-05-31 08:00:00 132 mm[Hg] [facility] blood pressure diastolic 2023-05-31 08:00:00 85 mm[Hg] [facility] height 2022-11-30 08:40:00 60 [in_i] [facility] weight 2022-11-30 08:40:00 121.6 [lb_av] Co [facility] temperature 2022-11-30 08:40:00 97.3 [degF] Com [facility] bmi 2022-11-30 08:40:00 23.75 kg/m2 [facility] oximetry 2022-11-30 08:40:00 97 % [facility] respiratory rate 2022-11-30 08:40:00 16 /min [facility] blood pressure systolic 2022-11-30 08:40:00 165 mm[Hg] [facility] blood pressure diastolic 2022-11-30 08:40:00 82 mm[Hg] [facility] height 2022-06-04 11:00:00 60 [in_i] [facility] weight 2022-06-04 11:00:00 124.2 [lb_av] Co on [facility] temperature 2022-06-04 11:00:00 97.8 [degF] Com [facility] bmi 2022-06-04 11:00:00 24.25 kg/m2 [facility] oximetry 2022-06-04 11:00:00 99 % [facility] respiratory rate 2022-06-04 11:00:00 16 /min [facility] blood pressure systolic 2022-06-04 11:00:00 131 mm[Hg] [facility] blood pressure diastolic 2022-06-04 11:00:00 65 mm[Hg] [facility] height 2022-01-15 08:00:00 60 [in_i] [facility] weight 2022-01-15 08:00:00 123.4 [lb_av] [facility] temperature 2022-01-15 08:00:00 97.3 [degF] Com [facility] bmi 2022-01-15 08:00:00 24.1 kg/m2 [facility] oximetry 2022-01-15 08:00:00 97 % [facility] respiratory rate 2022-01-15 08:00:00 16 /min [facility] blood pressure systolic 2022-01-15 08:00:00 134 mm[Hg] [facility] blood pressure diastolic 2022-01-15 08:00:00 73 mm[Hg] [facility] height 2021-10-16 09:00:00 60 [in_i] [facility] weight 2021-10-16 09:00:00 123 [lb_av] [facility] temperature 2021-10-16 09:00:00 97.7 [degF] Com [facility] bmi 2021-10-16 09:00:00 24.02 kg/m2 [facility] oximetry 2021-10-16 09:00:00 99 % [facility] respiratory rate 2021-10-16 09:00:00 16 /min [facility] blood pressure systolic 2021-10-16 09:00:00 128 mm[Hg] [facility] blood pressure diastolic 2021-10-16 09:00:00 62 mm[Hg] [facility] height 2021-06-26 08:00:00 60 [in_i] [facility] weight 2021-06-26 08:00:00 121.8 [lb_av] [facility] temperature 2021-06-26 08:00:00 97.0 [degF] Com [facility] bmi 2021-06-26 08:00:00 23.78 kg/m2 [facility] oximetry 2021-06-26 08:00:00 100 % [facility] respiratory rate 2021-06-26 08:00:00 16 /min [facility] blood pressure systolic 2021-06-26 08:00:00 132 mm[Hg] [facility] blood pressure diastolic 2021-06-26 08:00:00 68 mm[Hg] [facility] Procedures Procedure Date / Time Performed Performing Clinicia n Source MAMMO, screening, digital, bilateral 2024-07-20 00:00:00 [facility] Breast Augmentation W/implt [facility] Procedure on Wrist [facility] Encounters Start Date/Time End Date/Time Encounter Type Admission Type Attending Clinicians Care Facility Care Department Encounter ID Source 2024-07-23 08:39:00 [facility] [id number] [facility] 2023-12-25 08:07[facility] [id number] [facility] 2023-11-26 10:17:00 [facility] [id number] [facility] 2023-10-10 16:34:00 [facility] [id number] [facility] 2023-07-17 10:01:00 Outpatient [place] ar[place]ola [facility] [id number] [facility] 2023-05-31 11:32:00 Outpatient [place] ar[place]ola [facility] [id number] [facility] 2023-05-27 16:38:00 Outpatient Polly Triana [facility] [id number] [facility] 2022-11-28 13:58:00 Outpatient [place] ar[place]ola [facility] [id number] [facility] 2022-06-01 10:44:00 Outpatient Polly Triana [facility] [id number] [facility] 2022-05-03 08:30:01 Outpatient Polly Triana [facility] [id number] [facility] 2022-01-11 13:10:00 Outpatient [place] ar[place] [facility] [id number] [facility] 2021-10-20 15:32:00 Outpatient Polly Triana [facility] [id number] [facility] 2021-10-12 08:38:01 Outpatient Polly Triana [facility] [id number] [facility] 2021-10-04 14:00:37 Outpatient Polly Triana [facility] [id number] [facility] 2021-10-04 12:45:46 Outpatient [place] ar[place]ola [facility] [id number] [facility] 2021-10-04 12:14:09 Outpatient Polly Triana [facility] [id number] [facility] 2021-10-04 11:56:05 Outpatient Polly Triana [facility] [id number] [facility] 2021-10-04 11:24:32 Outpatient Polly Triana [facility] [id number] [facility] 2021-10-04 10:59:22 Outpatient Polly Triana [facility] [id number] [facility] 2024-11-10 00:00:00 2024-11-10 00:00:00 LATISHA Bowles: [address], [address], [place] [id number] , Ph. formerly [facility] - GC_GCBZW_Ia tony Lack[place]en* [id number] [facility] 2024-10-06 00:00:00 2024-10-06 00:00:00 LATISHA Bowles: [address], [address], [place] [address] , Ph. formerly [facility] - GC_GCBZW_Gretchen [place]* [id number] [facility] 2024-08-18 00:00:00 2024-08-18 00:00:00 LATISHA Bowles: [address], [address], [place] [address] , Ph. formerly [facility] - GC_GCBZW_Gretchen Woods* [id number] [facility] 2024-07-30 00:00:00 2024-07-30 00:00:00 LATISHA Bowles: [address], [address], [place] [phone] , Ph. formerly [facility] - GC_GCBZW_Gretchen jimenez Chuck* [id number] [facility] 2024-07-27 00:00:00 2024-07-27 00:00:00 (WELLNESS) Wellness Visit [facility] [id number] [facility] 2024-07-20 00:00:00 2024-07-20 00:00:00 LATISHA Bowles: [address], [place] [address] , Ph. formerly [facility] - GC_GCBZW_Gretchen Woods* [id number] [facility] 2024-07-06 00:00:00 2024-07-06 00:00:00 (TEL) [facility] [id number] [facility] 2024-04-27 00:00:00 2024-04-27 00:00:00 (TEL) [facility] [id number] [facility] 2023-12-27 00:00:00 2023-12-27 00:00:00 OFFICE VISIT ESTAB PT LEVEL 3 [facility] [id number] [facility] 2023-09-30 00:00:00 2023-09-30 00:00:00 (TEL) [facility] [id number] [facility] 2023-08-25 00:00:00 2023-08-25 00:00:00 (TEL) [facility] [id number] [facility] 2023-08-09 00:00:00 2023-08-09 00:00:00 (TEL) [facility] [id number] [facility] 2023-07-22 00:00:00 2023-07-22 00:00:00 OFFICE VISIT ESTAB PT LEVEL 3 [facility] [id number] [facility] 2023-06-24 00:00:00 2023-06-24 00:00:00 Outpatient GC_GCBZW_Mc Intire_E PRIV PRIV [id number] [facility] 2023-05-31 00:00:00 2023-05-31 00:00:00 OFFICE VISIT ESTAB PT LEVEL 3 [facility] [id number] [facility] 2023-04-26 00:00:00 2023-04-26 00:00:00 Outpatient GC_GCBZW_Mc Intire_E PRIV PRIV [id number] [facility] 2023-04-09 00:00:00 2023-04-09 00:00:00 Outpatient GC_GCBZW_Mc Intire_E PRIV PRIV [id number] [facility] 2023-04-09 00:00:00 2023-04-09 00:00:00 Outpatient GC_GCBZW_Mc Intire_E PRIV PRIV [id number] [facility] 2022-11-30 00:00:00 2022-11-30 00:00:00 OFFICE VISIT ESTAB PT LEVEL 3 [facility] [id number] [facility] 2022-11-27 00:00:00 2022-11-27 00:00:00 (TEL) [facility] [id number] [facility] 2022-10-01 00:00:00 2022-10-01 00:00:00 (TEL) [facility] [id number] [facility] 2022-06-04 00:00:00 2022-06-04 00:00:00 PREV VISIT EST AGE 40-64 [facility] [id number] [facility] 2022-02-07 00:00:00 2022-02-07 00:00:00 (TEL) [facility] [id number] [facility] 2022-01-15 00:00:00 2022-01-15 00:00:00 OFFICE VISIT EST PT LEVEL 3 [facility] [id number] [facility] 2021-10-16 00:00:00 2021-10-16 00:00:00 OFFICE VISIT EST PT LEVEL 3 [facility] [id number] [facility] 2021-06-26 00:00:00 2021-06-26 00:00:00 OFFICE VISIT EST PT LEVEL 3 [facility] [id number] [facility] 2021-04-18 00:00:00 2021-04-18 00:00:00 Outpatient [facility] [id number] [facility] 2021-03-22 00:00:00 2021-03-22 00:00:00 Outpatient [facility] [id number] [facility] 2021-03-20 00:00:00 2021-03-20 00:00:00 Outpatient [facility] [id number] [facility] 2021-03-15 00:00:00 2021-03-15 00:00:00 Outpatient [facility] [id number] [facility] 2020-12-05 00:00:00 2020-12-05 00:00:00 Outpatient [facility] STLMLC [id number] [facility] 2020-08-26 00:00:00 2020-08-26 00:00:00 Outpatient [facility] ST[facility] [id number] [facility] 2020-05-20 08:40:00 2020-05-20 08:40:00 [facility] [id number] [facility] 2020-04-14 18:28:00 2020-04-14 18:28:00 [facility] [address] [facility] [id number] [facility] 2020-02-22 11:00:00 2020-02-22 11:00:00 [facility] [address] [facility] [id number] [facility] 2020-02-12 08:00:00 2020-02-12 08:00:00 [facility] [address] [facility] [id number] [facility] 2019-11-18 17:40:00 2019-11-18 17:40:00 [facility] [address] [facility] [id number] [facility] 2019-11-13 09:20:00 2019-11-13 09:20:00 [facility] [address] [facility] [id number] [facility] 2019-09-18 09:00:00 2019-09-18 09:00:00 Outpatient [facility] [id number] [facility] 2019-07-10 08:40:00 2019-07-10 08:40:00 Outpatient [facility] [id number] [facility] 2019-03-27 08:40:00 2019-03-27 08:40:00 Outpatient [facility] [id number] [facility] 2018-11-13 14:30:00 2018-11-13 14:30:00 Outpatient [facility] [id number] [facility] Results Test Description Test Time Test Comments Results Result Co mments Source [facility] MedicalEstradiol (E2) [Mass/volume] in Serum or [id number] 00:00:00 * Test Item Value Reference Range Interpretation Comme nts estradiol (test code = estradiol) 38.6 pg/mL 6.1-91.9 [facility] MedicalTestosterone free and total panel [Mass/volume] - Serum or Plasma 2024-09-22 00:00:00* Test Item Value Reference Range Interpretation Comme nts free testosterone (test code = free testosterone) 1.62 NG/dL 0.12-0.64 H sex hormone binding globulin (test code = sex hormone binding globulin) 85.50 nmol/L 10.00-57.00 H testosterone (test code = testosterone) 169.0 NG/dL 8.4-48.1 H [facility] MedicalFollitropin [Units/volume] in Serum or [id number] 00:00:00* Test Item Value Reference Range Interpretation Comme nts FSH (test code = FSH) 81.4 mIU/mL [facility] Shtxjmb92-Wjmvdvwfqsrecj D3+25-Hydroxyvitamin D2 [Mass/volume] in Serum or [id number] 00:00:00* Test Item Value Reference Range Interpretation Comme nts vitamin D III (test code = v itamin D III) 37.6 NG/mL 32.0-100.0 [facility] MedicalTriiodothyronine (T3) Free [Mass/volume] in Serum or Plasma 2024-07-21 00:00:00* Test Item Value Reference Range Interpretation Comme nts free T3 (test code = free T3) 3.2 pg/mL 2.0-4.7 [facility] MedicalThyrotropin [Units/volume] in Serum or [id number] 00:00:00* Test Item Value Reference Range Interpretation Comme nts TSH (test code = TSH) 1.290 uIU/mL 0.500-4.530 [facility] MedicalDehydroepiandrosterone sulfate (DHEA-S) [Mass/volume] in Serum or [id number] 00:00:00* Test Item Value Reference Range Interpretation Comme nts DHEA-S (test code = DHEA-S) 70.4 ug/dL 98.8-340.0 L [facility] MedicalEstradiol (E2) [Mass/volume] in Serum or [id number] 00:00:00 * Test Item Value Reference Range Interpretation Comme nts estradiol (test code = estradiol) 5.0 pg/mL 6.1-91.9 L [facility] MedicalTestosterone free and total panel [Mass/volume] - Serum or Plasma 2024-07-21 00:00:00* Test Item Value Reference Range Interpretation Comme nts free testosterone (test code = free testosterone) 0.02 NG/dL 0.12-0.64 L sex hormone binding globulin (test code = sex hormone binding globulin) 102.00 nmol/L 10.00-57.00 H testosterone (test code = testosterone) < 2.5 8.4-48.1 L [facility] MedicalHEMOGLOBIN [id number] 00:00:00* Test Item Value Reference Range Interpretation Comme nts A1C (test code = 4548-4) 5.8 COMPREHENSIVE METABOLIC PANEL(CMP)2023-06-03 00:00:00* Test Item Value Reference Range Interpretation Comme nts ALBUMIN (test code = 1751-7) 4.5 g/dL See_Comment N [Automated [employer]] The system which generated this result transmitted reference range: 3.6-5.1 g/dL. The reference range was not used to interpret this result as normal/abnormal. ALBUMIN/GLOBULIN RATIO (test code = 1759-0) 2.0 (calc) See_Comment N [Automated messa ge] The system which generated this result transmitted reference range: 1.0-2.5 (calc). The reference range was not used to interpret this result as normal/abnormal. ALKALINE PHOSPHATASE (test code = 6768-6) 75 U/L See_Comment N [Automated message] The system which generated this result transmitted reference range: 37-153 U/L. The reference range was not used to interpret this result as normal/abnormal. ALT (test code = 1742-6) 12 U/L See_Comment N [Automated messa ge] The system which generated this result transmitted reference range: 6-29 U/L. The reference range was not used to interpret this result as normal/abnormal. AST (test code = 1920-8) 16 U/L See_Comment N [Automated messa ge] The system which generated this result transmitted reference range: 10-35 U/L. The reference range was not used to interpret this result as normal/abnormal. BILIRUBIN, TOTAL (test code = 1975-2) 0.5 mg/dL See_Comment N [Automated message] The system which generated this result transmitted reference range: 0.2-1.2 mg/dL. The reference range was not used to interpret this result as normal/abnormal. BUN/CREATININE RATIO (test code = 3097-3) SEE NOTE: (calc) See_Comment [Automated message] The system which generated this result transmitted reference range: 6-22 (calc). The reference range was not used to interpret this result as normal/abnormal. CALCIUM (test code = 04497-3) 9.4 mg/dL See_Comment N [Automated messa ge] The system which generated this result transmitted reference range: 8.6-10.4 mg/dL. The reference range was not used to interpret this result as normal/abnormal. CARBON DIOXIDE (test code = 2027-9) 30 mmol/L See_Comment N [Automated messa ge] The system which generated this result transmitted reference range: 20-32 mmol/L. The reference range was not used to interpret this result as normal/abnormal. CHLORIDE (test code = 2075-0) 104 mmol/L See_Comment N [Automated messa ge] The system which generated this result transmitted reference range: 98-110 mmol/L. The reference range was not used to interpret this result as normal/abnormal. CREATININE (test code = 2160-0) 0.70 mg/dL See_Comment N [Automated [employer]] The system which generated this result transmitted reference range: 0.50-1.05 mg/dL. The reference range was not used to interpret this result as normal/abnormal. GLOBULIN (test code = 31198-7) 2.2 g/dL (calc) See_Comment N [Automated message] The system which generated this result transmitted reference range: 1.9-3.7 g/dL (calc). The reference range was not used to interpret this result as normal/abnormal. GLUCOSE (test code = 2345-7) 144 mg/dL See_Comment H [Automated [employer]] The system which generated this result transmitted reference range: 65-99 mg/dL. The reference range was not used to interpret this result as normal/abnormal. POTASSIUM (test code = 2823-3) 4.9 mmol/L See_Comment N [Automated [employer]] The system which generated this result transmitted reference range: 3.5-5.3 mmol/L. The reference range was not used to interpret this result as normal/abnormal. PROTEIN, TOTAL (test code = 2885-2) 6.7 g/dL See_Comment N [Automated [employer]] The system which generated this result transmitted reference range: 6.1-8.1 g/dL. The reference range was not used to interpret this result as normal/abnormal. SODIUM (test code = 2951-2) 142 mmol/L See_Comment N [Automated [employer]] The system which generated this result transmitted reference range: 135-146 mmol/L. The reference range was not used to interpret this result as normal/abnormal. UREA NITROGEN (BUN) (test code = 3094-0) 9 mg/dL See_Comment N [Automated message] The system which generated this result transmitted reference range: 7-25 mg/dL. The reference range was not used to interpret this result as normal/abnormal. HEMOGLOBIN [id number] 00:00:00* Test Item Value Reference Range Interpretation Comme [facility] A1C (test code = 4548-4) 6.5 HEMOGLOBIN A1c W/REFL TO GLYCBio-Key InternationalRAFTER-MOUSE(R)2022-01-05 00:00:00* Test Item Value Reference Range Interpretation Comme [facility] HEMOGLOBIN A1c (test code = 4549-2) 6.1 % of total Hgb See_Comment H [Automated message] The system which generated this result transmitted reference range: <5.7 % of total Hgb. The reference range was not used to interpret this result as normal/abnormal. HEMOGLOBIN [id number] 00:00:00* Test Item Value Reference Range Interpretation Comme nts A1C (test code = 4548-4) 6.5 HEMOGLOBIN A1C* Test Item Value Reference Range Interpretation Comme nts A1C (test code = 4548-4) 7.0
[2024-12-12 23:42] LABS: Absolute Lymphocytes (CBC) 0.4 K/uL (0.7-4.9); Absolute Monocytes 0.4 K/uL (0.1-1.3); Absolute Neutrophil 10.2 K/uL (1.8-8.0); Basophils % 0.3 % (0-1.3); Eosinophils % 0.2 % (0-4.4); Hemoglobin 14.9 g/dL (12.0-15.0); Lymphocytes % 3.6 % (15.3-44.8); MCH 31.9 pg (27.0-35.0); MCHC 34.6 g/dL (32.0-36.0); MCV 92.2 fL (80-100); MPV 7.2 fL (7.6-11.3); Monocytes % 3.3 % (3.3-12.3); Neutrophils % 92.6 % (41.7-73.7); Platelets 241 thou/uL (152-406); RBC Red Blood Cell Count 4.66 M/uL (3.86-4.86); Red Cell Distribution Width 13.1 % (12.1-15.2)
[2024-12-12 23:44] LABS: Specific Gravity 1.025 (1.005-1.030); Urine Bacteria <20 /HPF (<20); Urine Bilirubin NEGATIVE (Negative); Urine Blood Trace (Negative); Urine Clarity Extremely Turbid (Clear); Urine Color Yellow (Yellow); Urine Culture Reflex Order NOT NEEDED; Urine Glucose NEGATIVE (Negative); Urine Ketones 2+ (Negative); Urine Microscopic Reflex YN ORDER UMIC; Urine Mucus Slight /HPF (None Seen); Urine Nitrite NEGATIVE (Negative); Urine Protein TRACE (Negative); Urine Urobilinogen Normal (Normal); Urine WBC <5 /HPF (<5)
[2024-12-13] MEDS ORDERED: NA CHLORIDE 0.9% 1,000 ML ONE ×2 (00:37→03:36)
[2024-12-13] MEDS ORDERED: DICYCLOMINE HCL 20 MG/2 ML AMP IM ONE (00:37)
[2024-12-13 01:18] LABS: Band Neutrophils 28 % (0-1); Blood Morphology Comment NOT SEEN (NOT SEEN); Differential Total Cells Count 100; Eosinophils 1 % (0-3); Lymphocytes 5 % (15-42); Monocytes 2 % (0-10); Platelet Estimate ADEQ; Reactive Lymphocytes 4 %; Segmented Neutrophils 60 % (40-80)
[2024-12-13 02:03] LABS: Albumin/Globulin Ratio 1.3 (1.1-1.8); Anion Gap 9.9 mEq/L (5.0-15.0); Bilirubin Total 0.7 mg/dL (0.2-1.0); Globulin 3.2 g/dL (2.3-3.5); Potassium 3.9 mEq/L (3.5-5.1); Protein, Total 7.2 g/dL (6.4-8.2)
--- NOTE | 2024-12-13 03:21 | RAD REPORT ---
PROCEDURE: CT Abdomen and Pelvis Without and With Intravenous Contrast CLINICAL INDICATION: The patient is 59 years old and is Female; Left flank pain. TECHNIQUE: Axial computed tomography images of the abdomen and pelvis without and with intravenous contrast. S agittal and coronal reformatted images were created and reviewed. This CT exam was performed using one or more of the following dose reduction techniques: automated exposure control, adjustmen t of the mA and/or kV according to patient size, and/or use of iterative reconstruction technique. COMPARISON: None. FINDINGS: LUNG BASES: Unremarkable No mass. No consolidation. HEART: Trace pericardial effusion. ABDOMEN: LIVER: Unremarkable No mass. GALLBLADDER AND BILE DUCTS: Unremarkable No calcified stones. No ductal dilation. PANCREAS: Unremarkable No mass. No ductal dilation. SPLEEN: Unremarkable No splenomegaly. ADRENALS: Unremarkable No mass. KIDNEYS AND URETERS: Unremarkable No solid mass. No obstructing stones. No hydronephrosis. STOMACH AND BOWEL: Several mildly dilated loops of small bowel in the left abdomen with internal ai r fluid levels, but no discrete transition points to suggest overt obstruction. No associated mucosal edema, pneumatosis, or mesenteric fat stranding or free fluid. PELVIS: APPENDIX: No findings to suggest acute appendicitis. BLADDER: Unremarkable No mass. No stones. REPRODUCTIVE: Prominence of the bilateral uterine and left gonadal veins, measuring up to 0.8 cm in the left. ABDOMEN and PELVIS: INTRAPERITONEAL SPACE: See above. BONES/JOINTS: Lumbarization of the S1 vertebra. No acute fracture. No dislocation. SOFT TISSUES: Partially visualized bilateral breast implants. VASCULATURE: See above. LYMPH NODES: Unremarkable No enlarged lymph nodes. IMPRESSION: 1. Several mildly dilated loops of small bowel in the left abdomen with internal air fluid levels, but no discrete transition points to suggest overt obstruction. No associated mucosal edema, pneumatosis, or mesenteric fat stranding or free fluid. Findings are nonspecific but could reflect a mild ileus or enteritis. 2. Prominence of the bilateral uterine and left gonadal veins, measuring up to 0.8 cm in the left. Correlation for symptoms of pelvic congestion syndrome recommended. 3. Otherwise, no acute findings in the abdomen or pelvis. 4. Trace pericardial effusion. Electronically signed by: Brendan Child MD 12/13/2024 03:18 AM CDT RP Due to temporary technical issues with the [employer] reporting system, reports are being enzo d by the in-house radiologist without review as a courtesy to ensure prompt reporting the interpreting radiologist is fully responsible for the content of the report. Transcribed Date/Time: 12/13/2024 3:21 AM
[2024-12-13] MEDS ORDERED: ONDANSETRON 4 MG/2 ML VIAL ONE (03:35)
[2024-12-13] MEDS ORDERED: MORPHINE 4 MG/ML SYR ONE (03:36)
--- NOTE | 2024-12-13 03:42 | ER ---
Nurse's Notes [facility] Name: Piedad Mello Age: 59 yrs Sex: Female : 1965 Arrival Date: 12/12/2024 Time: 22:42 Bed 18 Private MD: Diagnosis: Ileus, unspecified;Abdominal pain, unspecified;Vomiting Presentation: 12/12 23:02 Chief complaint: Patient states: LEFT SIDE PAIN....RADIATES TO LEFT FLANK AND LLQ, br2 INTERMITTENT/SHARP....VOMITING SEVERAL TIMES TODAY. PAIN HAS BEEN GOING ON FOR 10 DAYS, VOMITING STARTED TODAY AT APPROX 1930. Coronavirus screen: Client denies travel out of the [place] in the last 14 days. Ebola Screen: Patient denies exposure to infectious person. Initial Sepsis Screen: Does the patient meet any 2 criteria? No. Patient's initial sepsis screen is negative. Does the patient have a suspected source of infection? No. Patient's initial sepsis screen is negative. Risk Assessment: Do you want to hurt yourself or someone else? Patient reports no desire to harm self or others. Onset of symptoms was December 03, 2024. 23:02 Method Of Arrival: Ambulatory br2 23:02 Acuity: MYRA 3 br2 Triage Assessment: 23:08 General: Appears in no apparent distress. comfortable, Behavior is calm, cooperative. br2 Pain: Complains of pain in posterior aspect of left lateral abdomen and anterior aspect of left lateral abdomen Pain currently is 7 out of 10 on a pain scale. GI: Reports lower abdominal pain, nausea, vomiting. Historical: - Allergies: 23:08 Aspirin; br2 23:08 NSAIDS; br2 - PMHx: 23:08 diabetes mellitus; Hypercholesterolemia; br2 - Immunization history:: Adult Immunizations not up to date. - Infectious Disease History:: Denies. - Social history:: Smoking status: Patient reports the use of cigarette tobacco products, Patient uses alcohol, but reports only rare drinking. Patient/guardian denies using street drugs. Screenin:27 [facility] ED Fall Risk Assessment (Adult) History of falling in the last 3 months, vc1 including since admission No falls in past 3 months (0 pts) Confusion or Disorientation No (0 pts) Intoxicated or Sedated No (0 pts) Impaired Gait No (0 pts) Mobility Assist Device Used No (0 pt) Altered Elimination No (0 pt) Score/Fall Risk Level 0 - 2 = Low Risk Oriented to surroundings, Maintained a safe environment, Educated pt \T\ family on fall prevention, incl call for assistance when getting out of bed. Abuse screen: Denies threats or abuse. Nutritional screening: No deficits noted. Tuberculosis screening: No symptoms or risk factors identified. Assessment: 23:25 General: Appears in no apparent distress. uncomfortable, slender, well groomed, well vc1 developed, well nourished. Pain: Complains of pain in anterior aspect of left lateral abdomen and posterior aspect of left lateral abdomen Pain does not radiate. Pain currently is 8 out of 10 on a pain scale. Quality of pain is described as sharp, Also complains of nausea. Neuro: Level of Consciousness is awake, alert, obeys commands, Oriented to person, place, time, situation, Appropriate for age. Cardiovascular: Heart tones S1 S2 present Capillary refill < 3 seconds Patient's skin is warm and dry. Respiratory: Airway is patent Respiratory effort is even, unlabored, Respiratory pattern is regular, symmetrical, Breath sounds are clear bilaterally. GI: Abdomen is non-distended, Abd is soft Abdomen is tender to palpation Reports lower abdominal pain, nausea, vomiting. : No deficits noted. No signs and/or symptoms were reported regarding the genitourinary system. EENT: No deficits noted. No signs and/or symptoms were reported regarding the EENT system. Derm: Skin is intact, is healthy with good turgor, Skin is dry, Skin is normal, Skin temperature is warm. Musculoskeletal: Circulation, motion, and sensation intact. Range of motion: intact in all extremities. 12/13 00:02 Reassessment: Patient appears in no apparent distress at this time. No changes from vc1 previously documented assessment. Patient and/or family updated on plan of care and expected duration. Pain level reassessed. Patient is alert, oriented x 3, equal unlabored respirations, skin warm/dry/pink. 00:56 Reassessment: Patient appears in no apparent distress at this time. No changes from vc1 previously documented assessment. Patient and/or family updated on plan of care and expected duration. Pain level reassessed. Patient is alert, oriented x 3, equal unlabored respirations, skin warm/dry/pink. 02:21 Reassessment: No changes from previously documented assessment. Patient and/or family vc1 updated on plan of care and expected duration. Pain level reassessed. Patient is alert, oriented x 3, equal unlabored respirations, skin warm/dry/pink. 03:45 General: [id number] Carson . vc1 04:19 Reassessment: Patient appears in no apparent distress at this time. No changes from vc1 previously documented assessment. Patient and/or family updated on plan of care and expected duration. Pain level reassessed. Patient is alert, oriented x 3, equal unlabored respirations, skin warm/dry/pink. Vital Signs: 12/12 23:02 BP 132 / 77; Pulse 96; Resp 18; Temp 97.2(TE); Pulse Ox 97% on R/A; Weight 52.16 kg; br2 Height 5 ft. 0 in. ; Pain 03/18; 12/13 00:00 BP 116 / 65; Pulse 80; Resp 18; Pulse Ox 95% ; vc1 01:00 BP 114 / 60; Pulse 86; Resp 17; Pulse Ox 99% ; vc1 02:00 BP 120 / 65; Pulse 90; Resp 16; Pulse Ox 97% ; vc1 04:29 BP 119 / 60; Pulse 85; Resp 14; Pulse Ox 95% ; vc1 12/12 23:02 Body Mass Index 22.46 (52.16 kg, 152.4 cm) br2 12/12 23:02 Pain Scale: Adult br2 ED Course: 12/12 22:43 Patient arrived in ED. rg4 22:54 [facility] Campbell [facility] cp 22:54 Devaughn Bal MD is Attending Physician. cp 23:07 Triage completed. br2 23:08 Arm band placed on right wrist. br2 23:16 Susy Crooks, LEANNE is Primary Nurse. vc1 23:25 CBC with Diff Sent. vc1 23:25 CMP Sent. vc1 23:25 Lipase Sent. vc1 23:25 Urinalysis w/ reflexes Sent. vc1 23:25 Initial lab(s) drawn, by wi, sent to lab. Urine collected:. Inserted saline lock: 20 vc1 gauge in right antecubital area, using aseptic technique. Blood collected. Flushed with 10 mL NS. 23:27 Patient has correct armband on for positive identification. Bed in low position. Call vc1 light in reach. Pulse ox on. NIBP on. 12/13 02:15 CT Abd/Pelvis- W/WO Contrast In Process Unspecified. EDMS 03:40 Car Hurtado MD is Hospitalizing Provider. cp 03:46 No provider procedures requiring assistance completed. Patient admitted, IV remains in vc1 place. 05:29 Provided Education on: NPO. vc1 Administered Medications: 00:44 Drug: Dicyclomine IM 20 mg IM once Route: IM; Site: right deltoid; vc1 02:47 Follow up: Response: No adverse reaction; No change in condition vc1 00:45 Drug: NS 0.9% IV 1000 ml IV at 1000 ml once; to be given as a bolus over 60 minutes vc1 Route: IV; Rate: 1000 ml; Site: right antecubital; 01:45 Follow up: IV Status: Completed infusion; IV Intake: 1000ml vc1 03:52 Drug: morphine IVP or IV 4 mg IVP once over 4 mins Route: IVP; Infused Over: 4 mins; vc1 Site: right antecubital; 04:29 Follow up: Response: No adverse reaction; Marked relief of symptoms; Pain is decreased vc1 03:52 Drug: NS 0.9% IV 1000 ml IV at 100 ml/hr Per protocol Route: IV; Rate: 100 ml/hr; Site: vc1 right antecubital; 05:31 Follow up: IV Status: Infusion continued upon admission vc1 03:52 Drug: Ondansetron IVP 4 mg IVP once; over 2 minutes Route: IVP; Site: right antecubital;vc1 04:15 Follow up: Response: No adverse reaction; Marked relief of symptoms vc1 04:09 Drug: metroNIDAZOLE IVPB 500 mg 100 ml IVPB once over 30 mins Volume: 100 ml; Route: vc1 IVPB; Infused Over: 30 mins; Site: right antecubital; 04:39 Follow up: IV Status: Completed infusion; IV Intake: 100ml vc1 04:28 Drug: Ciprofloxacin IVPB 400 mg 200 ml IVPB once over 60 mins Volume: 200 ml; Route: vc1 IVPB; Infused Over: 60 mins; Site: right antecubital; 05:31 Follow up: IV Status: Completed infusion vc1 Medication: 12/12 23:27 VIS not applicable for this client. vc1 Intake: 12/13 01:45 IV: 1000ml; Total: 1000ml. vc1 04:39 IV: 100ml; Total: 1100ml. vc1 Outcome: 03:41 Decision to Hospitalize by Provider. cp 05:29 Admitted to Med/surg accompanied by tech, via wheelchair, room 222, vc1 05:29 Condition: stable 05:29 Instructed on the need for admit, 05:31 Patient left the ED. vc1 Signatures: Dispatcher [employer] EDMS Devaughn Campbell PA PA cp Garcia, Rubi rg4 Susy Crooks, RN RN vc1 Katherine Higginbotham RN RN br2
--- NOTE | 2024-12-13 03:42 | EDPHYS ---
Physician Documentation [facility] Name: Piedad Mello Age: 59 yrs Sex: Female : 1965 Arrival Date: 12/12/2024 Time: 22:42 Bed 18 Private MD: ED Physician Devaughn Bal HPI: 12/12 23:30 This 59 yrs old Female presents to ER via Ambulatory with complaints of Flank Pain, cp Vomiting. 23:30 The patient complains of pain in the left flank. Onset: The symptoms/episode cp began/occurred 10 day(s) ago. 23:30 Associated signs and symptoms: Pertinent positives: nausea, multiple episodes of cp vomiting today, Pertinent negatives: diarrhea, dysuria, fever, constipation. 23:30 The pain does not radiate. Severity of pain: in the emergency department the pain is cp unchanged despite home interventions. Historical: - Allergies: 23:08 Aspirin; br2 23:08 NSAIDS; br2 - PMHx: 23:08 diabetes mellitus; Hypercholesterolemia; br2 - Immunization history:: Adult Immunizations not up to date. - Infectious Disease History:: Denies. - Social history:: Smoking status: Patient reports the use of cigarette tobacco products, Patient uses alcohol, but reports only rare drinking. Patient/guardian denies using street drugs. ROS: 23:35 Constitutional: Negative for body aches, chills, fever, poor PO intake, cp 23:35 Cardiovascular: Negative for chest pain, edema, palpitations, cp 23:35 Eyes: Negative for injury, pain, redness, and discharge, cp 23:35 ENT: Negative for drainage from ear(s), ear pain, sore throat, difficulty swallowing, difficulty handling secretions, 23:35 Respiratory: Negative for cough, shortness of breath, wheezing, 23:35 Abdomen/GI: Positive for abdominal pain, nausea and vomiting, of the anterior aspect of left lateral lower abdomen, Negative for diarrhea, constipation, 23:35 Back: Negative for radiated pain, 23:35 : Negative for urinary symptoms, Exam: 23:40 Constitutional: The patient appears in no acute distress, alert, awake, non-toxic, well cp developed, well nourished, uncomfortable, 23:40 Head/Face: Normocephalic, atraumatic. cp 23:40 Eyes: Periorbital structures: appear normal, Conjunctiva: normal, no exudate, no injection, Sclera: no appreciated abnormality, Lids and lashes: appear normal, bilaterally, 23:40 ENT: External ear(s): are unremarkable, Nose: is normal, Mouth: Lips: moist, Oral mucosa: moist, Posterior pharynx: Airway: no evidence of obstruction, patent, 23:40 Neck: ROM/movement: is normal, is supple, without pain, no range of motions limitations, 23:40 Chest/axilla: Inspection: normal, 23:40 Cardiovascular: Rate: normal, 23:40 Respiratory: the patient does not display signs of respiratory distress, Respirations: normal, no use of accessory muscles, no retractions, labored breathing, is not present, Breath sounds: are clear throughout, no decreased breath sounds, no stridor, no wheezing, 23:40 Abdomen/GI: Inspection: abdomen appears normal, Bowel sounds: active, all quadrants, Palpation: soft, in all quadrants, moderate abdominal tenderness, in the anterior aspect of left lower lateral abdomen, rebound tenderness, is not appreciated, involuntary guarding, is not appreciated, 23:40 Back: CVA tenderness, is absent, 23:40 Skin: cellulitis, is not appreciated, no rash present. Vital Signs: 23:02 BP 132 / 77; Pulse 96; Resp 18; Temp 97.2(TE); Pulse Ox 97% on R/A; Weight 52.16 kg; br2 Height 5 ft. 0 in. ; Pain 7/10; 12/13 00:00 BP 116 / 65; Pulse 80; Resp 18; Pulse Ox 95% ; vc1 01:00 BP 114 / 60; Pulse 86; Resp 17; Pulse Ox 99% ; vc1 02:00 BP 120 / 65; Pulse 90; Resp 16; Pulse Ox 97% ; vc1 04:29 BP 119 / 60; Pulse 85; Resp 14; Pulse Ox 95% ; vc1 04 23:02 Body Mass Index 22.46 (52.16 kg, 152.4 cm) br2 12/12 23:02 Pain Scale: Adult br2 MDM: 12/12 22:55 Medical Screening Exam initiated cp 12/13 00:00 Differential diagnosis: nephrolithiasis, pyelonephritis, UTI, diverticulitis, cp pancreatitis, ruptured AAA, dissecting AAA. 03:45 Data reviewed: vital signs, nurses notes, lab test result(s), radiologic studies, CT cp scan, and as a result, I will admit patient. 03:45 Management of patient was discussed with the following: Hospitalist: DR Hurtado will cp admit after discussion. Surgical consultation with DR Crane. I considered the following discharge prescriptions or medication management in the emergency department Medications were administered in the Emergency Department. See MAR. Care significantly affected by the following chronic conditions: Diabetes. Counseling: I had a detailed discussion with the patient and/or guardian regarding the historical points, exam findings, and any diagnostic results supporting the discharge/admit diagnosis, lab results, radiology results. 12/12 23:06 Order name: CBC with Diff; Complete Time: 01:27 cp 12/13 01:27 Interpretation: Normal except: WBC 11.00; MPV 7.2; JENNIFER% 92.6; LYM% 3.6; NEUT A 10.2; cp LYMA 0.4. 12/12 23:06 Order name: CMP; Complete Time: 02:08 cp 12/13 02:08 Interpretation: Normal except: NA 133; GLUC 172. cp 12/12 23:06 Order name: Lipase; Complete Time: 02:08 cp 12/13 02:09 Interpretation: Reviewed. cp 12/12 23:06 Order name: Urinalysis w/ reflexes; Complete Time: 00:24 cp 12/13 01:27 Interpretation: Normal except: [facility] Extremely Turbid; UKET 2+; UBLD Trace; UPROT TRACE; cp URBC 5-10. 12/12 23:51 Order name: Manual Differential; Complete Time: 01:27 EDMS 12/13 01:27 Interpretation: Normal except: BANDS [F] 28; LYM 5. cp 12/13 03:44 Order name: Glucose, Ancillary Testing EDMS 12/13 04:42 Order name: Urinalysis w/ reflexes EDMS 12/13 04:42 Order name: CBC with Automated Diff EDMS 12/13 04:42 Order name: CBC with Automated Diff EDMS 12/13 04:42 Order name: Comprehensive Metabolic Panel EDMS 12/13 04:42 Order name: Comprehensive Metabolic Panel EDMS 12/13 00:25 Order name: CT Abd/Pelvis- W/WO Contrast cp 12/13 03:28 Interpretation: Reviewed. cp 12/12 23:06 Order name: IV Saline Lock; Complete Time: 23:25 cp 12/12 23:06 Order name: Labs collected and sent; Complete Time: 23:25 cp Administered Medications: 00:44 Drug: Dicyclomine IM 20 mg IM once Route: IM; Site: right deltoid; vc1 02:47 Follow up: Response: No adverse reaction; No change in condition vc1 00:45 Drug: NS 0.9% IV 1000 ml IV at 1000 ml once; to be given as a bolus over 60 minutes vc1 Route: IV; Rate: 1000 ml; Site: right antecubital; 01:45 Follow up: IV Status: Completed infusion; IV Intake: 1000ml vc1 03:52 Drug: morphine IVP or IV 4 mg IVP once over 4 mins Route: IVP; Infused Over: 4 mins; vc1 Site: right antecubital; 04:29 Follow up: Response: No adverse reaction; Marked relief of symptoms; Pain is decreased vc1 03:52 Drug: NS 0.9% IV 1000 ml IV at 100 ml/hr Per protocol Route: IV; Rate: 100 ml/hr; Site: vc1 right antecubital; 05:31 Follow up: IV Status: Infusion continued upon admission vc1 03:52 Drug: Ondansetron IVP 4 mg IVP once; over 2 minutes Route: IVP; Site: right antecubital;vc1 04:15 Follow up: Response: No adverse reaction; Marked relief of symptoms vc1 04:09 Drug: metroNIDAZOLE IVPB 500 mg 100 ml IVPB once over 30 mins Volume: 100 ml; Route: vc1 IVPB; Infused Over: 30 mins; Site: right antecubital; 04:39 Follow up: IV Status: Completed infusion; IV Intake: 100ml vc1 04:28 Drug: Ciprofloxacin IVPB 400 mg 200 ml IVPB once over 60 mins Volume: 200 ml; Route: vc1 IVPB; Infused Over: 60 mins; Site: right antecubital; 05:31 Follow up: IV Status: Completed infusion vc1 Disposition: 12/14 04:50 Co-signature as Attending Physician, Devaughn Bal MD I agree with the assessment and be plan of care. Disposition Summary: 12/13/24 03:41 Hospitalization Ordered Notes: Hospitalization Status: Observation cp Provider: Car Hurtado cp Location: Telemetry/[facility]Sur (observation) cp Condition: Stable cp Problem: new cp Symptoms: have improved cp Bed/Room Type: Standard cp Room Assignment: 222(12/13/24 04:46) sp Diagnosis - Ileus, unspecified cp - Abdominal pain, unspecified cp - Vomiting cp Forms: - Medication Reconciliation Form cp - SBAR form cp - Leadership Thank You Letter cp Signatures: Dispatcher [employer] EDMS Devaughn Bal MD MD cha Pinkerton, Shawna sp Page, Corey, PA PA cp Susy Crooks RN RN vc1 Katherine Higginbotham RN RN br2 Corrections: (The following items were deleted from the chart) 12/13 00:25 00:25 Abdomen Pelvis W/Wo Con+CT.RAD.BRZ ordered. [facility] EDPA 04:46 03:41 cp sp
[2024-12-13] MEDS ORDERED: CIPROFLOXACIN 400mg IV 400 MG/200 ML BAG IV ONE (04:02)
[2024-12-13] MEDS ORDERED: METRONIDAZOLE 500mg IVPB 500 MG/100 ML BAG IV ONE (04:03)
--- NOTE | 2024-12-13 04:37 | P.HP ---
Certification for Inpatient Patient admitted to: Observation With expected LOS: <2 Midnights Practitioner: I am a practitioner with admitting privileges, knowledge of patient current condition, hospital course, and medical plan of care. Services: Services provided to patient in accordance with Admission requirements found in Title 42 Section 412.3 of the Code of Federal Regulations Patient History Date of Service: 12/13/24 Reason for admission: Abdominal Pain History of Present Illness: 59 yrs old Female with past medical history of diabetes, hyperlipidemia, brought to ER with flank pain and nausea and vomiting. Symptoms started 10 days ago and has been progressively getting worse. Started insidiously 10 days ago, pain is located in the left flank. Denies any nausea or vomiting. Dull aching pain. 4 out of 10 in severity at the time of interview. No fever or chills. Has some nausea and vomiting. Denies any. No sick contacts. Denies any chest pain or shortness of breath. Patient was assessed in the ER was admitted for further management of intractable nausea and vomiting and abdominal pain. CT was consistent with possible ileus versus enteritis and possible pelvic congestion syndrome. Allergies NSAIDS (Non-Steroidal Anti-Inflamma Allergy (Severe, Verified 12/13/24 05:38) Anaphylaxis aspirin Adverse Reaction (Severe, Verified 12/13/24 05:38) Anaphylaxis Home Medications: Metformin ER [Glucophage ER] 750 mg PO DAILY 12/13/24 Metformin HCl 1 tab PO DAILY 12/13/24 [place]-3/Dha/Epa/Fish Oil [Fish Oil 1,000 mg Softgel] 1 each PO DAILY 12/13/24 Rosuvastatin [Crestor] 5 mg PO BEDTIME 12/13/24 - Past Medical/Surgical History Past Medical History: Reviewed- Non-Contributory -: DM , HLD Past Surgical History: Reviewed- Non-Contributory - Family History Family History: Reviewed- Non-Contributory - Social History Smoking Status: Never smoker Review of Systems 10-point ROS is otherwise unremarkable Physical Examination - Vital Signs Temperature: 97.2 F Blood Pressure: 132/77 Pulse: 90 Respirations: 18 Pulse Ox (%): 94 - Physical Exam General: Alert, Oriented x3 HEENT: Atraumatic, Normocephalic Neck: Supple, JVD not distended Respiratory: Clear to auscultation bilaterally, Normal air movement Capillary refill: <2 Seconds Gastrointestinal: W/out hepatosplenomegaly, Tenderness Musculoskeletal: No clubbing, No swelling Integumentary: No rashes Neurological: Other (Alert awake nonfocal) Lymphatics: No axilla or inguinal lymphadenopathy - Studies Laboratory Data (last 24 hrs) 12/12/24 12/12/24 23:05 23:05 WBC 11.00 H Hgb 14.9 Hct 43.0 Plt Count 241 Sodium 133 L Potassium 3.9 BUN 18 Creatinine 0.62 Glucose 172 H Total Bilirubin 0.7 AST 18 ALT 22 Alkaline Phosphatase 65 Lipase 53 Assessment and Plan - Plan Left-sided abdominal pain Possible ileus versus enteritis Pain control Started on clear liquid diet CT consistent with enteritis/ileus/pelvic congestion syndrome Started on antibiotic empirically Hyperlipidemia Continue statin Hyponatremia Dehydration Monitor renal parameters Electrolytes monitor and replace accordingly Diabetes Insulin sliding scale Accu-Chek before every meal and at bedtime Possible pelvic congestion syndrome CT findings noted Pain control May need TELECOMMUNICATIONS MANAGER consult as outpatient GI/DVT prophylaxis Advanced directive full code Discharge Plan: Home Plan to discharge in: 24 Hours - Advance Directives Does patient have a Living Will: No Does patient have a Durable POA for Healthcare: No - Code Status/Comfort Care Code Status: Full Code Time Spent Managing Pts Care (In Minutes): 48
[2024-12-13] MEDS ORDERED: ACETAMINOPHEN 325 MG TABLET PO PRN (04:38)
[2024-12-13] MEDS: NA CHLORIDE 0.9% 1,000 ML IV SCH (05:00)
[2024-12-13 06:08] VITALS: BMI 24.5
[2024-12-13] MEDS: CEFTRIAXONE 1,000 MG in NA CHLORIDE 0.9% 50 ML IVPB SCH (09:01)
[2024-12-13] MEDS: ENOXAPARIN 40 MG/0.4 ML SQ SCH (09:03)
[2024-12-13] MEDS: METRONIDAZOLE 500mg IVPB 500 MG/100 ML BAG IV SCH (10:13)
[2024-12-13] MEDS: MORPHINE 2 MG/ML SYR IV PRN (10:14)
[2024-12-13] MEDS: ONDANSETRON 4 MG/2 ML VIAL IV PRN (12:23)
--- NOTE | 2024-12-13 14:21 | P.PN ---
Date of Service: 12/13/24 Patient seen and examined. She is complaining of intermittent pain in the left flank. She denies any nausea or vomiting today. CT abdomen pelvis results reviewed. Pelvic congestion syndrome reported and is unclear if this is related to pelvic infection. UA shows no evidence of UTI. Mild leukocytosis Patient is on empiric IV Rocephin and metronidazole. Analgesics as needed. Clear liquid diet for now. Analgesics as needed.
[2024-12-13] MEDS: MAGNESIUM CITRATE 300 ML BOT PO SCH (18:00)
[2024-12-13] MEDS ORDERED: MAGNESIUM CITRATE 300 ML BOT PO ONE (18:00)
[2024-12-13] MEDS: HYDROCODONE/APAP 5/325 MG TAB PO PRN (18:26)
[2024-12-14 01:11] VITALS: O2SAT 97
[2024-12-14] MEDS: DIPHENHYDRAMINE 25 MG TAB/CAP PO ONE (05:09)
[2024-12-14 05:53] LABS: Absolute Lymphocytes (CBC) 0.6 K/uL (0.7-4.9); Absolute Monocytes 0.3 K/uL (0.1-1.3); Absolute Neutrophil 2.6 K/uL (1.8-8.0); Basophils % 0.3 % (0-1.3); Eosinophils % 1.3 % (0-4.4); Hemoglobin 12.4 g/dL (12.0-15.0); Lymphocytes % 17.7 % (15.3-44.8); MCH 32.3 pg (27.0-35.0); MCHC 34.4 g/dL (32.0-36.0); MPV 7.2 fL (7.6-11.3); Monocytes % 8.2 % (3.3-12.3); Neutrophils % 72.5 % (41.7-73.7); Nucleated Red Blood Cells % 0.1 % (0-0); Platelets 175 thou/uL (152-406); RBC Red Blood Cell Count 3.83 M/uL (3.86-4.86); Red Cell Distribution Width 13.5 % (12.1-15.2)
[2024-12-14 06:16] LABS: Albumin/Globulin Ratio 1.3 (1.1-1.8); Anion Gap 6.8 mEq/L (5.0-15.0); Bilirubin Total 0.3 mg/dL (0.2-1.0); Globulin 2.4 g/dL (2.3-3.5); Potassium 3.8 mEq/L (3.5-5.1); Protein, Total 5.4 g/dL (6.4-8.2)
[2024-12-14] MEDS: FLEET ENEMA ADULT PR ONE (09:28)
[2024-12-14] MEDS: POTASSIUM CL SA 10 MEQ TAB PO ONE (09:28)
[2024-12-14 11:57] VITALS: BP 132/73; TEMP 97.8
--- NOTE | 2024-12-14 12:30 | P.DS ---
Admission Date: 12/13/24 Discharge Date: 12/14/24 Disposition: ROUTINE DISCHARGE Discharge Condition: FAIR Reason for Admission: Abdominal Pain Brief History of Present Illness: 59 yrs old Female with past medical history of diabetes, hyperlipidemia, brought to ER with flank pain and nausea and vomiting, 10 days duration, progressively got worse. No associated fever. Patient was assessed in the ER was admitted for further management of intractable nausea and vomiting and abdominal pain. CT was consistent with possible ileus versus enteritis and possible pelvic congestion syndrome. Hospital Course: Diagnosis Intractable nausea and vomiting Functional constipation Pelvic congestion Diabetes mellitus type 2 diabetes mellitus type 2 Patient was placed under observation on the medical floor, treated with antibiotics-IV Rocephin and Flagyl for enterocolitis and possible pelvic infection (given pelvic congestion as reported by the CT abdomen and pelvis). Of note the CT abdomen pelvis also suggested ileus. No kidney stones reported. Patient was given laxatives after which she had multiple bowel movements. Her pain resolved. UA did not suggest UTI. Patient tolerated diet advancement. Patient informed she will need to follow-up with a mortgage consultant for comprehensive pelvic examination and to return to the emergency department for repeat studies if if her symptoms recurs. Patient discharged with oral ciprofloxacin and Flagyl to continue treatment for enterocolitis and possible pelvic infection. Vital Signs/Physical Exam: Temp Pulse Resp BP Pulse Ox 97.8 F 71 18 132/73 97 12/14/24 12:15 12/14/24 12:15 12/14/24 12:15 12/14/24 12:15 12/14/24 12:15 General: Alert, In no apparent distress, Oriented x3 HEENT: Mucous membr. moist/pink, Sclerae nonicteric Neck: Supple, JVD not distended Respiratory: Clear to auscultation bilaterally, Normal air movement Cardiovascular: No edema, Regular rate/rhythm, Normal S1 S2 Gastrointestinal: Normal bowel sounds, Soft and benign, Non-distended, No tenderness Musculoskeletal: No swelling Integumentary: No rashes, No cyanosis Neurological: Normal strength at 5/5 x4 extr Laboratory Data at Discharge: WBC 3.60 thou/uL (4.3-10.9) L 12/14/24 05:32 Hgb 12.4 g/dL (12.0-15.0) 12/14/24 05:32 Hct 36.0 % (36.0-45.0) 12/14/24 05:32 Plt Count 175 thou/uL (152-406) 12/14/24 05:32 Sodium 138 mEq/L (136-145) 12/14/24 05:32 Potassium 3.8 mEq/L (3.5-5.1) 12/14/24 05:32 BUN 6 mg/dL (7-18) L 12/14/24 05:32 Creatinine 0.50 mg/dL (0.55-1.02) L 12/14/24 05:32 Glucose 155 mg/dL (74-106) H 12/14/24 05:32 Total Bilirubin 0.3 mg/dL (0.2-1.0) 12/14/24 05:32 AST 22 U/L (15-37) 12/14/24 05:32 ALT 20 U/L (13-56) 12/14/24 05:32 Alkaline Phosphatase 42 U/L (45-117) L 12/14/24 05:32 Lipase 53 U/L (13-75) 12/12/24 23:05 Home Medications: Metformin ER [Glucophage ER*] 750 mg PO DAILY 12/13/24 [place]-3/Dha/Epa/Fish Oil [Fish Oil 1,000 mg Softgel] 1 each PO DAILY 12/13/24 Rosuvastatin [Crestor*] 5 mg PO BEDTIME 12/13/24 Ciprofloxacin HCl [Cipro 500 MG Tablet] 500 mg PO BID #14 tab 12/14/24 Ondansetron [Zofran] 4 mg PO Q6H PRN #20 tab 12/14/24 metroNIDAZOLE [Flagyl] 500 mg PO Q8H #21 tab 12/14/24 New Medications: Ciprofloxacin HCl [Cipro 500 MG Tablet] 500 mg PO BID #14 tab metroNIDAZOLE [Flagyl] 500 mg PO Q8H #21 tab Ondansetron [Zofran] 4 mg PO Q6H PRN #20 tab PRN Reason: Nausea / Vomiting Diet: ADA Activity: Ad pepper Followup: Polly Triana, RECAPPER [Primary Care Provider] - 1-2 Weeks Time spent managing pt's care (in minutes): 29
== END 2024-12-14 15:56 | disposition home or self-care (01) ==
LOC: ER 22:42 → 2ND 12-13 04:38
PROVIDERS: ADMIT Family Medicine; ATTEND Internal Medicine
DX: R10.9 Unspecified abdominal pain (principal); K59.00 Constipation, unspecified; E87.1 Hypo-osmolality and hyponatremia; E11.9 Type 2 diabetes mellitus without complications; E78.5 Hyperlipidemia, unspecified; R11.2 Nausea with vomiting, unspecified; Z88.6 Allergy status to analgesic agent
CPT/HCPCS: 85025 ×2; 81001; 36415 ×2; 82947 ×3; 83690; 80053 ×2; 74178; Q9967; J0500; J1650 ×2; J2270; J2405 ×2; J0744; J7030 ×4; J0696 ×2; G0378

== ENCOUNTER 2025-04-30 06:14 | Day surgery (SDC) | payer OTHER ==
[2025-04-26 11:44] LABS: Absolute Lymphocytes (CBC) 1.5 K/uL (0.7-4.9); Hematocrit 41.8 % (36.0-45.0); Hemoglobin 14.0 g/dL (12.0-15.0); MCH 31.9 pg (27.0-35.0); MCHC 33.5 g/dL (32.0-36.0); MCV 95.2 fL (80-100); MPV 7.1 fL (7.6-11.3); Nucleated RBC Absolute Count 0.0 (0-0); Nucleated Red Blood Cells % 0.1 % (0-0); RBC Red Blood Cell Count 4.39 M/uL (3.86-4.86); White Blood Count 5.60 thou/uL (4.3-10.9)
[2025-04-26 11:57] LABS: Anion Gap 8.2 mEq/L (5.0-15.0); BUN Blood Urea Nitrogen 10.0 mg/dL (7-18); Glucose Level 133.0 mg/dL (74-106); Potassium 5.2 mEq/L (3.5-5.1)
[2025-04-30] MEDS: NA CHLORIDE 0.9% 1,000 ML ONE (06:45)
[2025-04-30] MEDS ORDERED: LIDOCAINE 1% MPF 5 ML VIAL ONE (07:19)
[2025-04-30] MEDS ORDERED: MIDAZOLAM HCL 2 MG/2 ML INJ ONE (07:19)
[2025-04-30] MEDS ORDERED: ONDANSETRON 4 MG/2 ML VIAL ONE (08:47)
[2025-04-30 10:33] VITALS: O2SAT 100
[2025-04-30 10:35] VITALS: BP 146/75; TEMP 97.3
== END 2025-04-30 09:20 | disposition home or self-care (01) ==
LOC: OR 06:14
PROVIDERS: ATTEND Surgery
PROC: 0DJD8ZZ Inspection of Lower Intestinal Tract, Via Natural or Artificial Opening Endoscopic (ICD-10-PCS; principal; 2025-04-30 08:00)
DX: Z12.11 Encounter for screening for malignant neoplasm of colon (principal); K64.8 Other hemorrhoids
CPT/HCPCS: 36415; 80048; 82947; 85025; 93005; J2003; J2250; J2405; J2704; J7030